=== PATIENT | female | born 1950 | race Caucasian/White ===

== ENCOUNTER → 2023-04-24 06:27 | Day surgery (SDC) | payer OTHER, SELFPAY | LOC: GI 06:27 | PROVIDERS: ATTENDING PHYSICIAN Internal Medicine Gastroenterology | DX: D12.2 Benign neoplasm of ascending colon (principal); D12.5 Benign neoplasm of sigmoid colon; K62.1 Rectal polyp; K55.20 Angiodysplasia of colon without hemorrhage; K57.30 Diverticulosis of large intestine without perforation or abscess without bleeding; K64.8 Other hemorrhoids; D50.9 Iron deficiency anemia, unspecified; K29.70 Gastritis, unspecified, without bleeding; K31.89 Other diseases of stomach and duodenum; K44.9 Diaphragmatic hernia without obstruction or gangrene; K31.819 Angiodysplasia of stomach and duodenum without bleeding; R63.4 Abnormal weight loss | CPT/HCPCS: 45380; 45382; 43239; 88305; 88342 ==

== ENCOUNTER 2023-08-13 23:40 | Inpatient (IN) | payer OTHER, SELFPAY ==
[2023-08-13 20:33] VITALS: BP 148/76; BMI 23.8
[2023-08-13 21:47] LABS: % Basophils 0.1 % (0-2); % Eosinophils 0.3 % (0-6); % Immature Granulocytes 0.6 % (0-0.5); % Lymphocytes 4.9 % (20.5-51.1); % Monocytes 6.6 % (1.7-9.3); % Neutrophils 87.5 % (42.2-75.2); Absolute Eosinophils 0.1 10^3/uL (0-0.7); Absolute Immature Granulocytes 0.1 10^3/uL (0-0.05); Absolute Lymphocytes 0.7 10^3/uL (1.2-3.4); Absolute Monocytes 0.9 10^3/uL (0.1-0.6); Absolute Neutrophils 12.6 10^3/uL (1.4-6.5); Mean Corp Hgb Conc. 29.4 g/dL (33.0-37.0); Mean Corpuscular Volume 102.1 fL (81.0-99.0); Mean Platelet Volume 9.9 fL (7.4-10.4); Nucleated Red Blood Cells % 0 %; Platelet Count 355 10^3/uL (130-400); Red Cell Dist. Width 14.4 % (11.5-14.5); White Blood Cell Count 14.4 10^3/uL (4.8-10.8)
[2023-08-13 21:49] VITALS: BP 148/72
[2023-08-13 21:58] LABS: ALT (SGPT) 12 U/L (0-35); AST (SGOT) 15 U/L (14-36); Albumin 3.3 g/dl (3.5-5.0); Alkaline Phosphatase 82 U/L (38-126); Blood Urea Nitrogen 24 mg/dl (7-17); Calcium 9.6 mg/dl (8.4-10.2); Carbon Dioxide 22 mmol/L (22-30); Chloride 104 mmol/L (98-107); Estimated Creatinine Clearance 30 ml/min; Glucose 114 mg/dl (70-99); Potassium 3.8 mmol/L (3.5-5.1); Sodium 135 mmol/L (135-145); Total Bilirubin 0.3 mg/dl (0.2-1.3); Total Protein 5.8 g/dl (6.3-8.2); eGFR 43.42
[2023-08-13 22:00] VITALS: BP 127/53
[2023-08-13 22:01] LABS: Hematocrit 14.3 % (37.0-47.0); Hemoglobin 4.2 g/dL (12.0-16.0)
[2023-08-13 22:10] LABS: Troponin I < 0.012 ng/ml
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
[2023-08-13 23:00] VITALS: BP 124/49
[2023-08-13] MEDS: ZOSYN 100 IV (23:00)
--- NOTE | 2023-08-13 23:29 | HPS.HSE ---
Family Physician
-
Family Physician: Lauri Garcia
Chief Complaint
-
shortness of breath
History of Present Illness
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 She
did have some palpitations earlier but this is resolved. Denies any chest pain.
She denies any changes in bowel movements but has chronically black stool due to taking iron supplements. Denies abdominal pain or nausea or vomiting. She did have some loose stools this morning.
Patient last had endoscopy and colonoscopy in April of this year. Endoscopy showed nonbleeding angiodysplastic lesion in the duodenum prompting colonoscopy. Colonoscopy showed nonbleeding internal hemorrhoids, diverticulosis, multiple
nonbleeding angiectasia lesions in the colon treated with APC.
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
Medical History
Past Medical History
Past Medical History: Reports Other ( Mycobacterium Avium, COPD, hypertension, hyperlipidemia, depression, chronic kidney disease)
Past Surgical History: Reports None
Social History
Tobacco: Smoker
Alcohol: None
Family History
Family History: Not pertinent
Allergies / Home Medications
Allergies reflects when Allergies were last updated in [email or web address].
Home Medications with original date entered in [email or web address]
Allergy/Medication List:
Allergies
Allergy/AdvReac Type Severity Reaction Status Date / Time
No Known Allergies Allergy Verified 08/13/23 20:33
Home Medications
mometasone-formoterol HFA 200 mcg-5 mcg/actuation aerosol inhaler (Dulera) 2 puff inhalation R BID Lung/breathing issues 07/01/21
tiotropium bromide 2.5 mcg/actuation mist for inhalation (Spiriva Respimat) 2 puff inhalation R DAILY Lung/breathing issues 07/01/21
aspirin 81 mg chewable tablet 81 mg PO DAILY Blood clot prevention/tx 07/08/21
losartan 25 mg tablet 25 mg PO DAILY Blood pressure 07/08/21
sertraline 100 mg tablet 100 mg PO DAILY Mental Health/Anxiety 07/08/21
ferrous sulfate 325 mg (65 mg iron) tablet (Feosol) 325 mg PO DAILY #30 tabs 07/12/21
ethambutol 400 mg tablet 800 mg PO DAILY Infection 10/24/22
wqaxfmqaznrp-cwaglnjz-chcrep tablet 1 tab PO DAILY Supplement 10/24/22
acetaminophen 500 mg tablet 500 mg PO Q6H PRN pain 12/29/22
doxylamine succinate 25 mg tablet (Unisom (doxylamine)) 25 mg PO HS PRN insomnia 12/29/22
simvastatin 20 mg tablet 20 mg PO DAILY High Cholesterol 12/29/22
clofazimine 50 mg capsule 50 mg PO DAILY Infection 01/16/23
Review of Systems
-
History Source: Patient
A 12 point ROS was completed and negative except as noted: Yes
Constitutional: Reports No Symptoms
EENT: Reports No Symptoms
Respiratory: Reports See HPI
Cardiac: Reports No Symptoms
Abdomen/GI: Reports See HPI
: Reports No Symptoms
Musculoskeletal: Reports No Symptoms
Skin: Reports No Symptoms
Neurological: Reports No Symptoms
Endocrine: Reports No Symptoms
Hematologic/Lymphatic: Reports No Symptoms
Psych: Reports No Symptoms
Physical Exam
Vital Signs
Vital Signs
Temp Pulse Resp BP Pulse Ox
98.4 F 101 18 127/53 97
08/13/23 20:33 08/13/23 22:15 08/13/23 22:15 08/13/23 22:00 08/13/23 22:15
Physical Exam
General: Well Developed, Well Nourished and No Apparent Distress
HEENT: NormoCephalic, Moist mucous membranes and Atraumatic
Respiratory: Clear
Cardiac: S1/S2 and Regular Rhythm; No Murmur or Rub
GI: Soft, Non Tender, Non Distended and Normal Bowel Sounds; No Organomegaly
Rectal: Deferred by Provider
Musculoskeletal: No Clubbing, No Cyanosis and No Edema
Skin: No Rash
Neuro: Nonfocal/grossly intact
Laboratory Results
-
08/13/23 21:37
08/13/23 21:37
Laboratory Results
Total Bilirubin 0.3 mg/dl (0.2-1.3) 08/13/23 21:37
AST 15 U/L (14-36) 08/13/23 21:37
ALT 12 U/L (0-35) 08/13/23 21:37
Alkaline Phosphatase 82 U/L (38-126) 08/13/23 21:37
Troponin I < 0.012 ng/ml 08/13/23 21:37
Data Reviewed
-
Lab Data: Labs Reviewed by me
Old Records: Reviewed
Impression/Plan
-
IMPRESSION:
PLAN:
# Dyspnea multifactorial secondary to severe anemia and community-acquired pneumonia
-See individually below
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
-Stool black and profoundly heme positive
-Hemoglobin of 4.2 from 7.6
-3 units of blood
-Check iron studies, B12, folate
-N.p.o.
-Hold aspirin
-Protonix 40 twice daily
-Patient had angiodysplasia lesions in duodenum/colon on recent EGD/colonoscopy
-GI consulted
# Sepsis (leukocytosis, tachycardia) secondary community-acquired pneumonia
-Check COVID, influenza
-Check sputum culture
-Blood cultures
-IV fluids
-Zosyn
History of necrotizing cavitary lesion with Mycobacterium Avium
-Completed treatment
COPD
-Continue inhalers
Anxiety/depression
-Continue sertraline
Essential hypertension
-Continue prophylactic aspirin
-Hold losartan
Hyperlipidemia
-Continue statin
Chronic kidney disease
-Renal function baseline
Active smoker
-10 cigarettes a day
DNR/DNI
DVT prophylaxis�SCDs
N.p.o.
[2023-08-13 23:57] VITALS: BP 124/49
[2023-08-14] VITALS (20 sets, daily range): BP systolic 109–146; BP diastolic 50–80; BMI 22.8
[2023-08-14] MEDS: NSS (PRESERVATIVE FREE) 10 ML IV ×3 (00:08→19:37)
[2023-08-14] MEDS: PROTONIX IV 40 MG IV ×3 (00:08→19:37)
[2023-08-14 00:42] LABS: Total Iron Binding Capacity 389 ug/dl (265-497)
[2023-08-14 00:50] LABS: COVID-19 Antigen Negative (Negative)
[2023-08-14 00:53] LABS: Iron < 20 ug/dl (37-170)
--- NOTE | 2023-08-14 01:20 | PTCARENOTE ---
Patient admitted into room 3342 from ER. Oriented to room and use of call ramirez. First unit of blood infusing by gravity. Tele applied showing NSR/ST. Patient reports 5/10 MADRID; Tylenol requested. 2L NC in place Sp02 98-100%, pt SOB at rest and with
exertion. Congested non-prod cough present. CHG wiped down. Call ramirez and tray table within reach.
[2023-08-14] MEDS: TYLENOL 650 MG PO ×2 (01:34→22:51)
--- NOTE | 2023-08-14 03:11 | PTCARENOTE ---
Second unit of blood started. VSS. Afebrile. IV patent.
At 15 min check pt offers no complaints. VSS. PRBC infusing per pump.
[2023-08-14 03:41] LABS: Folate > 20.0 ng/ml (2.76-20); Vitamin B12 984 pg/ml (239-931)
[2023-08-14] MEDS: ZOSYN 50 IV ×4 (04:53→22:22)
--- NOTE | 2023-08-14 06:37 | PTCARENOTE ---
Third unit of blood started this morning around 0550.
At 15min check pt offers no complaints. VSS. Denies any pain.
Call ramirez within reach.
--- NOTE | 2023-08-14 07:30 | CON.GI ---
Addendum entered and electronically signed by Kassy Giordano Do, MD 08/14/23 14:47:
I saw and examined the patient.
The [employer] [employer] [employer]'s note was reviewed and I agree with the note.
Comment: Roya is a 72yo W known to myself with ho SAMIR, COPD and CKD who presents with severe symptomatic anemia with H/bg 4.2 MCV 102 with dark heme + stools. She had EGD/colon for SANDRA done with myself in 04/2023 with polyps, cecal AVMS s/p
argon plasma coagulation. She also had gastritis, 2cm hiatal hernia and duodenal AVM with villous blunting. Labs severe iron deficiency. Normal B12 and folate. CXR PNA that is new and cavitary lesion in RUL zone
Impression
- PNA and SOB
- Severe iron def anemia and melena
Suspect AVM that was seen on EGD/colon 04/2023 in cecum and duodenum
- SAMIR
- COPD
- CKD
- Depression
- HTN
- HL
Recommendations
- PPI IV BID
- IV iron
- Monitor stool output
- Discussed EGD/enterosocpy and she is agreeable once respiratory status improves. She declines any repeat colonoscopy. Given that despite cautery that AVMs can recur she is agreeable to seeing outpatient ballet dancer for perioid IV
iron/transfusions PRN basis
- Low residue diet
Will follow with you
Original Note:
Consultation
-
Date/Time Consultation Requested: 08/14/23 005
Date/Time Consultation Performed: 08/14/23 0930
Requesting Provider: Capo Tapia MD
Performing Provider: DARLENE Alejandre, Kassy Quintanilla MD
Reason for Consultation: anemia
Medical History
Chief Complaint / HPI
Chief Complaint: shortness of breath
History of Present Illness:
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 On admission noted with hbg 4.2 with MCV 102. chemistry stable except creat 1.3
and glucose 114. Iron studies consistent with iron deficiency with normal B12 and folate. She is also noted with concern for PNA and sepsis on admission. 05/16 EGD erythema, HH, stomach, non bleeding angiodysplastic duodenum, villous blunting bx
neg ER stool heme +. recent EGD 05/16 with HH, nodule stomach, non bleeding angioectasia, focal villous blunting on bx. recommended celiac not completed. Colonoscopy with TA and HP polyps, diverticulosis, multiple non bleeding colonic
angiodysplastic lesion with APC.
At this time patient admits to chronic black stools with chronic iron use. She has occasional loose stool. She also has chronic dyspnea which is slightly worse than baseline. She admits to GERD with chronic tums use. No dysphagia, nausea,
vomiting, abdomen, or red blood in stools. On daily ASA no other NSAID use or anticoagulation.
Past Medical History
Past Medical History: COPD, HTN, Hypercholesterolemia, Renal Failure (CKD), Psychiatric (depression) and Other (mycobacterium Avium, colonic and duodenal AVM's, colon polyps)
Social History
Tobacco: Smoker (10 cig per day)
Alcohol: None
Drug: None
Living: With Family
Employment: Retired
Family History
Family History: Other (no family hx colon cA or polyps)
Allergies / Home Medications
Allergy/AdvReac Type Severity Reaction Status Date / Time
No Known Allergies Allergy Verified 08/13/23 20:33
�Medication �Instructions �Recorded
mometasone-formoterol HFA 200 2 puff inhalation R BID 07/01/21
mcg-5 mcg/actuation aerosol Lung/breathing issues
inhaler (Dulera)
tiotropium bromide 2.5 2 puff inhalation R DAILY 07/01/21
mcg/actuation mist for inhalation Lung/breathing issues
(Spiriva Respimat)
aspirin 81 mg chewable tablet 81 mg PO DAILY Blood clot 07/08/21
prevention/tx
losartan 25 mg tablet 25 mg PO DAILY Blood pressure 07/08/21
sertraline 100 mg tablet 100 mg PO DAILY Mental 07/08/21
Health/Anxiety
ferrous sulfate 325 mg (65 mg 325 mg PO DAILY #30 tabs 07/12/21
iron) tablet (Feosol)
ethambutol 400 mg tablet 800 mg PO DAILY Infection 10/24/22
rbozaqeakucz-uqwynwpo-wofkkb tablet 1 tab PO DAILY Supplement 10/24/22
acetaminophen 500 mg tablet 500 mg PO Q6H PRN pain 12/29/22
doxylamine succinate 25 mg tablet 25 mg PO HS PRN insomnia 12/29/22
(Unisom (doxylamine))
simvastatin 20 mg tablet 20 mg PO DAILY High Cholesterol 12/29/22
clofazimine 50 mg capsule 50 mg PO DAILY Infection 01/16/23
Review of Systems
-
History Source: Patient
Constitutional: Reports Fatigue
EENT: Reports No Symptoms
Respiratory: Reports Trouble Breathing (chronic with chronic O2)
Cardiac: Reports No Symptoms
Abdomen/GI: Reports Diarrhea (occasional ) and Black Stools (chronic with iron use )
: Reports No Symptoms
Musculoskeletal: Reports No Symptoms
Skin: Reports No Symptoms
Neurological: Reports Weakness
Endocrine: Reports No Symptoms
Hematologic/Lymphatic: Reports Bleeding
Vital Signs
Temp Pulse Resp BP Pulse Ox
98.7 F 85 23 125/54 99
08/14/23 06:03 08/14/23 06:30 08/14/23 06:30 08/14/23 06:03 08/14/23 06:30
Physical Exam
Exam
General: Other (some chronic shortness of breath in exam)
HEENT: Normocephalic and Anicteric
Respiratory: Other (dyspnea at rest )
Cardiac: Regular Rhythm
GI: Soft, Non Tender and Non Distended
Rectal: Other (heme + per ER)
Musculoskeletal: No Clubbing and No Cyanosis
Skin: Warm and Dry
Neuro: Awake, Alert and AO x 3
Psych: Calm
Results
WBC 14.4 10^3/uL (4.8-10.8) H 08/13/23 21:37
Hgb 4.2 g/dL (12.0-16.0) L* 08/13/23 21:37
Hct 14.3 % (37.0-47.0) L* 08/13/23 21:37
MCV 102.1 fL (81.0-99.0) H 08/13/23 21:37
Plt Count 355 10^3/uL (130-400) 08/13/23 21:37
Absolute Neuts (auto) 12.6 10^3/uL (1.4-6.5) H 08/13/23 21:37
Sodium 135 mmol/L (135-145) 08/13/23 21:37
Potassium 3.8 mmol/L (3.5-5.1) 08/13/23 21:37
Chloride 104 mmol/L (98-107) 08/13/23 21:37
Carbon Dioxide 22 mmol/L (22-30) 08/13/23 21:37
BUN 24 mg/dl (7-17) H 08/13/23 21:37
Creatinine 1.3 mg/dL (0.6-1.0) H 08/13/23 21:37
Calcium 9.6 mg/dl (8.4-10.2) 08/13/23 21:37
Total Bilirubin 0.3 mg/dl (0.2-1.3) 08/13/23 21:37
AST 15 U/L (14-36) 08/13/23 21:37
ALT 12 U/L (0-35) 08/13/23 21:37
Alkaline Phosphatase 82 U/L (38-126) 08/13/23 21:37
Diagnostic Image Results:
02/2023 CT Abd/pelvis Angio W/wo Iv
1. Post endovascular repair of infrarenal abdominal aortic aneurysm with placement of fenestrated aortobiiliac stent graft. Excluded aneurysm sac is stable in size measuring up to 5.1 cm. There appears be a tiny likely type III endoleak arising
from the posterior margin of the mid graft at the site of overlap of the main body of the graft and iliac limbs.
2. New ill-defined branching opacity seen within the right lower lobe with focal impaction of the leading bronchus suspicious for a bronchiolitis or possibly bronchopneumonia. No discrete nodule seen within this region on the prior CT. Attention
on follow-up imaging recommended.
3. 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
4. 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
5. Couple of nonobstructing nephroliths within the RIGHT kidney. 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
6. Additional findings above.
Prior GI Procedures:
04/24/23 EGD Kassy Quintanilla MD - Normal esophagus.
- Erythematous mucosa in the antrum. Biopsied.
- 2 cm hiatal hernia.
- Normal examined duodenum. Biopsied.
- A single papule (nodule) found in the stomach.
Biopsied.
- A single non-bleeding angiodysplastic lesion in the
duodenum.
focal villous blunting, H pylori, dysplasia
bx Hpylori, focal villous blunting nospecific
04/24/23 colon Kassy Quintanilla MD - Non-bleeding internal hemorrhoids.
- Diverticulosis in the sigmoid colon and in the
descending colon.
- The examination was otherwise normal.
- Three 2 to 3 mm polyps in the rectum, removed with a
jumbo cold forceps. Resected and retrieved.
- Multiple non-bleeding colonic angiodysplastic
lesions. Treated with argon plasma coagulation (APC).
- One 5 mm polyp in the ascending colon, removed with
a jumbo cold forceps. Resected and retrieved.
- One 3 mm polyp in the sigmoid colon, removed with a
jumbo cold forceps. Resected and retrieved.
bx tubular adenoma, hyperplastic polyp
Assessment / Plan
-
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 On admission noted with hbg 4.2 with MCV 102. chemistry stable except creat 1.3
and glucose 114. Iron studies consistent with iron deficiency with normal B12 and folate.She is also noted with concern for PNA and sepsis on admission. Prior GI testing 05/16 EGD erythema, HH, stomach, non bleeding angiodysplastic duodenum,
villous blunting bx neg ER stool heme +. recent EGD 05/16 with HH, nodule stomach, non bleeding angioectasia, focal villous blunting on bx. recommended celiac not completed. Colonoscopy with TA and HP polyps, multiple non bleeding colonic
angiodysplastic lesion with APC, diverticulosis
-macrocytic anemia with iron deficiency
-sepsis with concern for concurrent PNA with tachycardia/leukocytosis on admission
-hx colonic and duodenal AVM's
-hx SB villous blunting
-GERD PRN tums
other medical problems:
-necrotizing cavitary lesion with Mycobacterium Avium
-COPD
-active smoker
-anxiety/depression
-HTN
-hyperlipidemia
-CKD
PLAN:
etiology of anemia with iron deficiency related to slow bleeding with hx duodenal/colonic AVM's noted in April, underlying celiac with villous blunting vs other
cont rx for PNA with sepsis on admission as currently with continued dyspnea at rest with chronic o2 with underlying lung disease
consider EGD +/- colon when optimized from resp standpoint vs OP heme eval for iron infusion/monitoring of hbg
ok for low residue diet for now
no signs of aggressive GI bleeding as no stools overnight
s/p 3 units PRBC's ordered repeat hbg pending
add celiac panel as note completed OP with villous blunting
trend hbg
cont PPI BID
add 2 dose IV iron
will follow
-
-
Thank you for consultation and allowing me to participate in the patient's care. Please call the aviation manager GI physician during the after hours with any questions or concerns.
[2023-08-14] MEDS: NSS IV (07:42)
[2023-08-14] MEDS: NSS 1000 IV (07:55)
[2023-08-14 10:28] LABS: % Basophils 0.3 % (0-2); % Eosinophils 0.3 % (0-6); % Immature Granulocytes 0.8 % (0-0.5); % Lymphocytes 5.1 % (20.5-51.1); % Monocytes 6.6 % (1.7-9.3); % Neutrophils 86.9 % (42.2-75.2); Absolute Immature Granulocytes 0.1 10^3/uL (0-0.05); Absolute Lymphocytes 0.6 10^3/uL (1.2-3.4); Absolute Monocytes 0.8 10^3/uL (0.1-0.6); Absolute Neutrophils 10.8 10^3/uL (1.4-6.5); Hematocrit 22.4 % (37.0-47.0); Mean Corp Hgb Conc. 31.7 g/dL (33.0-37.0); Mean Corpuscular Hgb 29.2 pg (27.0-31.0); Mean Corpuscular Volume 92.2 fL (81.0-99.0); Nucleated Red Blood Cells % 0.2 %; Platelet Count 270 10^3/uL (130-400); Red Blood Cell Count 2.43 10^6/uL (4.20-5.40); Red Cell Dist. Width 19.6 % (11.5-14.5); White Blood Cell Count 12.4 10^3/uL (4.8-10.8)
[2023-08-14 10:29] LABS: ALT (SGPT) 13 U/L (0-35); AST (SGOT) 16 U/L (14-36); Albumin 2.9 g/dl (3.5-5.0); Alkaline Phosphatase 74 U/L (38-126); Blood Urea Nitrogen 20 mg/dl (7-17); Calcium 8.7 mg/dl (8.4-10.2); Carbon Dioxide 23 mmol/L (22-30); Chloride 108 mmol/L (98-107); Estimated Creatinine Clearance 30 ml/min; Glucose 107 mg/dl (70-99); Sodium 138 mmol/L (135-145); Total Bilirubin 1.5 mg/dl (0.2-1.3); Total Protein 5.2 g/dl (6.3-8.2); eGFR 43.42
[2023-08-14 10:33] LABS: Hemoglobin 7.1 g/dL (12.0-16.0); NT-proBNP 2910 pg/ml
[2023-08-14 10:37] LABS: Troponin I < 0.012 ng/ml
[2023-08-14 10:48] LABS: Potassium 3.8 mmol/L (3.5-5.1)
[2023-08-14 10:57] LABS: TSH Reflex To Free T4 1.87 uIU/ml (0.47-4.68)
[2023-08-14] MEDS: DUONEB 3 ML INH (12:03)
--- NOTE | 2023-08-14 12:18 | W.PN.HOSP.TC ---
Today's Communication/Plan
-
trend cbc
iv ppi bid
iv iron
empiric abx for pneumonia
speech eval
Assessment / Plan
Assessment / Plan
General: Laying in bed, mildly tachypneic
HEENT: Normocephalic and Anicteric
Respiratory: Other (dyspnea at rest )
Cardiac: Regular Rhythm
GI: Soft, Non Tender and Non Distended
Rectal: Other (heme + per ER)
Musculoskeletal: No Clubbing and No Cyanosis
Skin: Warm and Dry
Neuro: Awake, Alert and AO x 3
Psych: Calm
# Dyspnea multifactorial secondary to severe symptomatic anemia and community-acquired pneumonia
-See individually below
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
-Stool black and profoundly heme positive
-Hemoglobin of 4.2 from 7.1
-3 units of blood
-LRD
-celiac panel added by GI
-Continue PPI BID
-IV Iron
-Trend CBC
-Hold aspirin
# Sepsis (leukocytosis, tachycardia) secondary community-acquired pneumonia
-Check COVID, influenza
-Check sputum culture
-Blood cultures
-IV fluids
-Zosyn
-speech eval
History of necrotizing cavitary lesion with Mycobacterium Avium
-Completed treatment
COPD (severe with pre-BD FEV1: 0.96, 47% predicted, DLco: 28% via PFt from 05/2021)
#Chronic hypoxemic respiratory failure on home O2 (2L/min at rest, 4L/min with activity)
-Continue inhalers
-at baseline
Anxiety/depression
-Continue sertraline
Essential hypertension
-Continue prophylactic aspirin
-Hold losartan
# Hyperbilirubinemia
� Add on direct bili
Hyperlipidemia
-Continue statin
Chronic kidney disease
-Renal function baseline
Active smoker
-10 cigarettes a day
DNR/DNI
DVT prophylaxis�SCDs
Anticipated Discharge: 24 - 48 hours
Subjective/Interval History
-
Date of Service: August 14, 2023
feels better although not still at baseline
Objective Data
-
Labs:
Laboratory Results
08/14/23
09:50
WBC 12.4 H
Hgb 7.1 L D
Hct 22.4 L
Plt Count 270 D
Sodium 138
Potassium 3.8
Chloride 108 H
Carbon Dioxide 23
BUN 20 H
Creatinine 1.3 H
Glucose 107 H
Calcium 8.7
Total Bilirubin 1.5 H D
AST 16
ALT 13
Alkaline Phosphatase 74
Vital Signs:
Vital Signs
Temp Pulse Resp BP Pulse Ox
98.5 F 88 20 131/58 98
08/14/23 07:55 08/14/23 12:09 08/14/23 12:09 08/14/23 10:00 08/14/23 12:09
I&O
08/13/23 08/14/23 08/15/23
06:59 06:59 06:59
Intake Total 800 / 800 250 / 250
Output Total 200 / 200
Balance 600 / 600 250 / 250
Review of Systems
-
History Source: Patient
All other systems: Not reviewed unless documented
Data Reviewed
-
Labs: Labs Reviewed by me
--- NOTE | 2023-08-14 12:45 | PTCARENOTE ---
Pt appears dyspneic at rest. She is tachypneic, RR 25-26. Lungs with coarse crackles, inspiratory and expiratory wheezing. Pt does state she feels SOB. She has a moist, harsh, non-productive cough. Denies being able to bring up sputum. RT to bedside
to give patient PRN breathing treatment. Pt appears much more comfortable following treatment and pt voiced she feels better.
[2023-08-14] MEDS: FERRLECIT 110 MG IV (13:42)
[2023-08-14 13:48] LABS: Direct Bilirubin 0.4 mg/dl (0.0-0.4)
--- NOTE | 2023-08-14 14:39 | PTOTSP ---
Dysphagia Evaluation
Patient was able to tolerate regular, thin liquids at time of evaluation without any overt signs/symptoms of aspiration. Increased respiratory rate noted after consecutive drinking and while chewing solid.
Patient is at an elevated risk for dysphagia/aspiration given acute (i.e., pneumonia with tachypnea and dyspnea) and chronic risk factors (i.e, COPD, GERD, hiatal hernia). Patient denied any history of prior dysphagia/aspiration and last known
pneumonia was 1 year ago.
Recommend:
1. Regular, Thin Liquids
2. Medications - as best tolerated
3. Strategies: upright to 90 degrees, small single sips/bites, slow rate, breaks for breathing, avoid eating if very SOB/coughing, reflux precautions
4. Consider video swallow study if concerned for aspiration based on risk factors above.
--- NOTE | 2023-08-14 14:46 | PTCARENOTE ---
Patient's son, Jonas was updated per nursing ability over the phone this morning and again at bedside when he came in for visit.
--- NOTE | 2023-08-14 14:57 | CM ---
Met with patient.She is admitted from home with anemia and pna. She lives alone. Her children live nearby and drive her to appointments
Her home is 2 level with 2 steps to enter. THere is half bath on entry level marketing representative. UP full flight to bedroom and full bathroom. She has shower seat and shower rails. S
She is currently on oxygen. CM to watch for need of oxygen at discharge.
NO history of VNA or SNf rehab.
PCP Dr. Martell
Pharmacy: [facility] [address] [facility].
PLAN: home no needs.
[2023-08-14] MEDS: TESSALON PERLES 200 MG PO (18:28)
[2023-08-14] MEDS: MELATONIN 3 MG PO (22:51)
[2023-08-15] VITALS (13 sets, daily range): BP systolic 109–134; BP diastolic 48–89; PULSE 84–120; O2SAT 100
[2023-08-15] MEDS: ZOSYN 50 IV ×4 (04:22→21:43)
[2023-08-15] MEDS: DUONEB 3 ML INH ×4 (04:37→20:03)
[2023-08-15 04:49] LABS: Hematocrit 21.8 % (37.0-47.0); Hemoglobin 7.1 g/dL (12.0-16.0); Mean Corp Hgb Conc. 32.6 g/dL (33.0-37.0); Mean Corpuscular Hgb 29.6 pg (27.0-31.0); Mean Corpuscular Volume 90.8 fL (81.0-99.0); Mean Platelet Volume 10.2 fL (7.4-10.4); Platelet Count 271 10^3/uL (130-400); Red Cell Dist. Width 20.1 % (11.5-14.5); White Blood Cell Count 10.4 10^3/uL (4.8-10.8)
[2023-08-15 05:17] LABS: Troponin I < 0.012 ng/ml
[2023-08-15 05:25] LABS: ALT (SGPT) 11 U/L (0-35); AST (SGOT) 18 U/L (14-36); Albumin 2.8 g/dl (3.5-5.0); Alkaline Phosphatase 77 U/L (38-126); Blood Urea Nitrogen 16 mg/dl (7-17); Calcium 8.9 mg/dl (8.4-10.2); Carbon Dioxide 21 mmol/L (22-30); Chloride 106 mmol/L (98-107); Estimated Creatinine Clearance 33 ml/min; Glucose 104 mg/dl (70-99); Magnesium 2.1 mg/dl (1.6-2.3); Potassium 3.4 mmol/L (3.5-5.1); Sodium 136 mmol/L (135-145); Total Bilirubin 0.7 mg/dl (0.2-1.3); Total Protein 5.2 g/dl (6.3-8.2)
--- NOTE | 2023-08-15 06:39 | PTCARENOTE ---
No acute events overnight. Afebrile. PRN tylenol given for headache.
[2023-08-15] MEDS: NSS (PRESERVATIVE FREE) 10 ML IV ×2 (09:04→20:02)
[2023-08-15] MEDS: PROTONIX IV 40 MG IV ×2 (09:04→20:02)
[2023-08-15] MEDS: KCL ELIXIR 40 MEQ PO (09:19)
[2023-08-15] MEDS: DELTASONE 40 MG PO (11:50)
--- NOTE | 2023-08-15 13:23 | W.PN.GI.CBS2 ---
Today's Communication / Plan
-
No BM
C/w IV iron and PPI IV BID
Anticipate EGD/enteroscopy on Thursday pending continued respiratory improvement
Assessment / Plan
-
Roya is a 72yo W known to myself with ho SAMIR, COPD and CKD who presents with severe symptomatic anemia with H/bg 4.2 MCV 102 with dark heme + stools. She had EGD/colon for SANDRA done with myself in 04/2023 with polyps, cecal AVMS s/p argon plasma
coagulation. She also had gastritis, 2cm hiatal hernia and duodenal AVM with villous blunting. Labs severe iron deficiency. Normal B12 and folate. CXR PNA that is new and cavitary lesion in RUL zone
Impression
- PNA and SOB
- Severe iron def anemia and melena
Suspect AVM that was seen on EGD/colon 04/2023 in cecum and duodenum
s/p 3 u PRBC on this admission
- SAMIR
- COPD
- CKD
- Depression
- HTN
- HL
Recommendations
- PPI IV BID
- IV iron
- Monitor stool output
- Serial H/H
- Discussed EGD/enterosocpy and she is agreeable for Thursday pending improvement in respiratory status. She declines any repeat colonoscopy. Given that despite cautery that AVMs can recur she is agreeable to seeing outpatient block captain for
perioid IV iron/transfusions PRN basis
- Low residue diet
Will follow with you
Subjective
Subjective
Date of Service: August 15, 2023
She ate 75% of lunch without issues. No BM since admisson though at baseline dark due to being on oral iron. Denies abd pain, nausea/vomiting
Objective
Data Reviewed
Laboratory Data:
Laboratory Results
08/15/23 04:20
08/15/23 04:20
Laboratory Results
Magnesium 2.1 mg/dl (1.6-2.3) 08/15/23 04:20
Total Bilirubin 0.7 mg/dl (0.2-1.3) 08/15/23 04:20
AST 18 U/L (14-36) 08/15/23 04:20
ALT 11 U/L (0-35) 08/15/23 04:20
Alkaline Phosphatase 77 U/L (38-126) 08/15/23 04:20
Vital Signs and I&O:
Vital Signs
Temp Pulse Resp BP Pulse Ox
99.0 F 89 21 122/60 97
08/15/23 07:57 08/15/23 12:00 08/15/23 12:00 08/15/23 10:00 08/15/23 12:00
I&O
08/14/23 08/15/23 08/16/23
06:59 06:59 06:59
Intake Total 800 / 800 1320 / 1320
Output Total 200 / 200 200 / 200
Balance 600 / 600 1120 / 1120
Physical Exam
Physical Exam
GEN: No acute distress, conversant, pleasant
HEENT: anicteric, extraocular movements intact, clear oropharynx without exudates
RESP: clear to auscultation without crackles
GI: soft, non-distended, not tender to palpation, normal active bowel sounds, no hepatosplenomegaly
EXT: warm, well perfused, trace edema bilaterally
NEURO: AAOx3, non-focal
[2023-08-15] MEDS: FERRLECIT 110 MG IV (13:46)
--- NOTE | 2023-08-15 14:09 | W.PN.HOSP.TC ---
Today's Communication/Plan
-
start prednisone
incentive missy
cont abx
f/u cultures
tentative EGD/C-Scope Thursday
Assessment / Plan
Assessment / Plan
General: Laying in bed, mildly tachypneic
HEENT: Normocephalic and Anicteric
Respiratory: Other (dyspnea at rest ) Expiratory wheezing lower Bases B/l
Cardiac: Regular Rhythm
GI: Soft, Non Tender and Non Distended
Rectal: Other (heme + per ER)
Musculoskeletal: No Clubbing and No Cyanosis
Skin: Warm and Dry
Neuro: Awake, Alert and AO x 3
Psych: Calm
# Dyspnea multifactorial secondary to severe symptomatic anemia and community-acquired pneumonia + COPD exacerbation
-See individually below
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
-Stool black and profoundly heme positive
-Hemoglobin of 4.2 from 7.1
-3 units of blood
-LRD
-celiac panel added by GI
-Continue PPI BID
-IV Iron
-Trend CBC
-Hold aspirin
-Plan EGD/Colonoscopy Thursday
# Sepsis (leukocytosis, tachycardia) secondary community-acquired pneumonia
-COVID, influenza - negative
-Check sputum culture if expectorating
-Blood cultures f/u
-Incentive Missy
-Zosyn
-speech eval
History of necrotizing cavitary lesion with Mycobacterium Avium
-Completed treatment
Acute COPD Exacerbation (severe with pre-BD FEV1: 0.96, 47% predicted, DLco: 28% via PFt from 05/2021)
#Chronic hypoxemic respiratory failure on home O2 (2L/min at rest, 4L/min with activity)
-Continue inhalers
-Start Prednisone
#Hypokalemia
-monitor and replete
Anxiety/depression
-Continue sertraline
Essential hypertension
-Continue prophylactic aspirin
-Hold losartan
# Hyperbilirubinemia
-resolved
Hyperlipidemia
-Continue statin
Chronic kidney disease
-Renal function baseline
Active smoker
-10 cigarettes a day
DNR/DNI
DVT prophylaxis�SCDs
Anticipated Discharge: Within 24 hours
Subjective/Interval History
-
Date of Service: August 15, 2023
resp status improving
Objective Data
-
Labs:
Laboratory Results
08/15/23
04:20
WBC 10.4
Hgb 7.1 L
Hct 21.8 L
Plt Count 271
Sodium 136
Potassium 3.4 L
Chloride 106
Carbon Dioxide 21 L
BUN 16
Creatinine 1.2 H
Glucose 104 H
Calcium 8.9
Total Bilirubin 0.7
AST 18
ALT 11
Alkaline Phosphatase 77
Vital Signs:
Vital Signs
Temp Pulse Resp BP Pulse Ox
97.9 F 98 21 112/50 99
08/15/23 11:45 08/15/23 14:00 08/15/23 14:00 08/15/23 14:00 08/15/23 14:00
I&O
08/14/23 08/15/23 08/16/23
06:59 06:59 06:59
Intake Total 800 / 800 1320 / 1320
Output Total 200 / 200 200 / 200
Balance 600 / 600 1120 / 1120
Review of Systems
-
History Source: Patient
All other systems: Not reviewed unless documented
Data Reviewed
-
Diagnostic Radiology: Image personally visualized and interpreted and Report Reviewed by me
Labs: Labs Reviewed by me
--- NOTE | 2023-08-15 14:11 | PTCARENOTE ---
Assumed care of Pt at shift change; 2L O2 with SpO2 ~ 93-96%; OOB to chair with PT; Trending Hgb, and giving IV iron; Pt continuing with low res diet, poor marlene. SR on monitor; Denies pain; Current smoker - refused nicotine patch. Will continue
to monitor and assess.
[2023-08-15] MEDS: MELATONIN 3 MG PO (21:43)
[2023-08-16] VITALS (20 sets, daily range): BP systolic 124–158; BP diastolic 58–99; PULSE 101; O2SAT 99
[2023-08-16] MEDS: ZOSYN 50 IV ×4 (03:44→22:11)
[2023-08-16 04:07] LABS: % Basophils 0.1 % (0-2); % Eosinophils 0.2 % (0-6); % Immature Granulocytes 0.5 % (0-0.5); % Lymphocytes 7.8 % (20.5-51.1); % Monocytes 7.8 % (1.7-9.3); % Neutrophils 83.6 % (42.2-75.2); Absolute Lymphocytes 0.7 10^3/uL (1.2-3.4); Absolute Monocytes 0.7 10^3/uL (0.1-0.6); Absolute Neutrophils 7.1 10^3/uL (1.4-6.5); Mean Corpuscular Hgb 28.9 pg (27.0-31.0); Mean Corpuscular Volume 90.4 fL (81.0-99.0); Mean Platelet Volume 10.4 fL (7.4-10.4); Nucleated Red Blood Cells % 0.4 %; Platelet Count 251 10^3/uL (130-400); Red Blood Cell Count 2.28 10^6/uL (4.20-5.40); Red Cell Dist. Width 19.1 % (11.5-14.5); White Blood Cell Count 8.5 10^3/uL (4.8-10.8)
[2023-08-16 04:09] LABS: Hematocrit 20.6 % (37.0-47.0); Hemoglobin 6.6 g/dL (12.0-16.0)
--- NOTE | 2023-08-16 04:34 | PTCARENOTE ---
AM hgb 6.6, hct 20.6. No signs of bleeding. call center operator provider made aware.
--- NOTE | 2023-08-16 04:37 | W.PN.UPDATE ---
Update Note
Progress Note Update
Pt's H&H 7.1/21.8>>6.6/20.6. Rx 1U PRBC. Repeat CBC post transfusion.
[2023-08-16 04:38] LABS: ALT (SGPT) 12 U/L (0-35); AST (SGOT) 19 U/L (14-36); Albumin 2.7 g/dl (3.5-5.0); Alkaline Phosphatase 65 U/L (38-126); Blood Urea Nitrogen 15 mg/dl (7-17); Calcium 8.9 mg/dl (8.4-10.2); Carbon Dioxide 22 mmol/L (22-30); Chloride 106 mmol/L (98-107); Estimated Creatinine Clearance 40 ml/min; Glucose 116 mg/dl (70-99); Sodium 134 mmol/L (135-145); Total Bilirubin 0.3 mg/dl (0.2-1.3); eGFR 59.49
--- NOTE | 2023-08-16 05:44 | PTCARENOTE ---
1 unit PRBCs ordered and currently infusing. CBC to be drawn 4 hours post transfusion.
[2023-08-16] MEDS: NSS (PRESERVATIVE FREE) 10 ML IV ×2 (07:40→20:35)
[2023-08-16] MEDS: DELTASONE 40 MG PO (07:40)
[2023-08-16] MEDS: TESSALON PERLES 200 MG PO ×2 (07:40→23:13)
[2023-08-16] MEDS: PROTONIX IV 40 MG IV ×2 (07:40→20:35)
[2023-08-16] MEDS: DUONEB 3 ML INH ×4 (08:11→19:43)
[2023-08-16] MEDS: TYLENOL 650 MG PO ×2 (11:16→18:27)
--- NOTE | 2023-08-16 11:44 | W.PN.GI.CBS2 ---
Today's Communication / Plan
-
Transfuse 1u PRBC today per hospitalist
May need another unit of blood tomorrow pending post transfusion CBC
Anticipate enteroscopy and colonoscopy (if pt is willing to drink prep) on Thursday
Assessment / Plan
-
Roya is a 72yo W known to myself with ho SAMIR, COPD and CKD who presents with severe symptomatic anemia with H/bg 4.2 MCV 102 with dark heme + stools. She had EGD/colon for SANDRA done with myself in 04/2023 with polyps, cecal AVMS s/p argon plasma
coagulation. She also had gastritis, 2cm hiatal hernia and duodenal AVM with villous blunting. Labs severe iron deficiency. Normal B12 and folate. CXR PNA that is new and cavitary lesion in RUL zone
Impression
- PNA and SOB
- Severe iron def anemia and melena
Suspect AVM that was seen on EGD/colon 04/2023 in cecum and duodenum
s/p 3 u PRBC on this admission
- SAMIR
- COPD
- CKD
- Depression
- HTN
- HL
Recommendations
- PPI IV BID
- IV iron
- Monitor stool output, none thus far
- Serial H/H, downtrending today and 1u PRBC ordered
- Discussed EGD/enterosocpy and she is agreeable for Thursday. Given further drop in Hbg today will need to strongly encourge her to have colonoscopy as well. Given that despite cautery that AVMs can recur she is agreeable to seeing outpatient
poultry sexer for period IV iron/transfusions PRN basis
- Low residue diet
Will follow with you
Subjective
Subjective
Date of Service: August 16, 2023
Tolerating a low residue diet. Denies abd pain, nausea/vomiting. She has not had any BM since admission
Objective
Data Reviewed
Laboratory Data:
Laboratory Results
08/16/23 03:55
Laboratory Results
Magnesium 2.1 mg/dl (1.6-2.3) 08/15/23 04:20
Total Bilirubin 0.3 mg/dl (0.2-1.3) 08/16/23 03:55
AST 19 U/L (14-36) 08/16/23 03:55
ALT 12 U/L (0-35) 08/16/23 03:55
Alkaline Phosphatase 65 U/L (38-126) 08/16/23 03:55
Vital Signs and I&O:
Vital Signs
Temp Pulse Resp BP Pulse Ox
98.4 F 85 20 124/99 99
08/16/23 11:42 08/16/23 11:38 08/16/23 11:38 08/16/23 10:00 08/16/23 11:38
I&O
08/15/23 08/16/23 08/17/23
06:59 06:59 06:59
Intake Total 1320 / 1320 340 / 340 250 / 250
Output Total 200 / 200
Balance 1120 / 1120 340 / 340 250 / 250
Physical Exam
Physical Exam
GEN: No acute distress, conversant, pleasant
HEENT: anicteric, extraocular movements intact, clear oropharynx without exudates ++AVM on L cheek
GI: soft, non-distended, not tender to palpation, normal active bowel sounds, no hepatosplenomegaly
EXT: warm, well perfused, no edema bilaterally
NEURO: AAOx3, non-focal
[2023-08-16 13:11] LABS: Mean Corp Hgb Conc. 33.2 g/dL (33.0-37.0); Mean Corpuscular Hgb 29.4 pg (27.0-31.0); Mean Corpuscular Volume 88.7 fL (81.0-99.0); Mean Platelet Volume 10.4 fL (7.4-10.4); Platelet Count 261 10^3/uL (130-400); Red Blood Cell Count 2.82 10^6/uL (4.20-5.40); Red Cell Dist. Width 19.2 % (11.5-14.5)
[2023-08-16 13:17] LABS: Hemoglobin 8.3 g/dL (12.0-16.0)
--- NOTE | 2023-08-16 14:17 | W.PN.HOSP.TC ---
Today's Communication/Plan
-
monitor cbc post transfusion
ppi iv
egd/scope tentatively thursday
steroids, nebs, abx
Assessment / Plan
Assessment / Plan
General: Laying in bed, mildly tachypneic
HEENT: Normocephalic and Anicteric
Respiratory: Other (dyspnea at rest ) Expiratory wheezing lower Bases B/l
Cardiac: Regular Rhythm
GI: Soft, Non Tender and Non Distended
Rectal: Other (heme + per ER)
Musculoskeletal: No Clubbing and No Cyanosis
Skin: Warm and Dry
Neuro: Awake, Alert and AO x 3
Psych: Calm
# Dyspnea multifactorial secondary to severe symptomatic anemia and community-acquired pneumonia + COPD exacerbation
-See individually below
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
-Stool black and profoundly heme positive
-Hemoglobin of 4.2 from 7.1
-4 units of blood total; 1 u today
-LRD
-celiac panel added by GI
-Continue PPI BID
-IV Iron
-Trend CBC
-Hold aspirin
-Plan EGD/Colonoscopy Thursday
# Sepsis (leukocytosis, tachycardia) secondary community-acquired pneumonia
-COVID, influenza - negative
-Check sputum culture if expectorating
-Blood cultures f/u
-Incentive [place]
-Zosyn
-speech eval
History of necrotizing cavitary lesion with Mycobacterium Avium
-Completed treatment
Acute COPD Exacerbation (severe with pre-BD FEV1: 0.96, 47% predicted, DLco: 28% via PFt from 05/2021)
#Chronic hypoxemic respiratory failure on home O2 (2L/min at rest, 4L/min with activity)
-Continue inhalers
-Start Prednisone - - can provide taper
#Hypokalemia
-monitor and replete
Anxiety/depression
-Continue sertraline
Essential hypertension
-Continue prophylactic aspirin
-Hold losartan
# Hyperbilirubinemia
-resolved
Hyperlipidemia
-Continue statin
Chronic kidney disease
-Renal function baseline
Active smoker
-10 cigarettes a day
DNR/DNI
DVT prophylaxis�SCDs
Anticipated Discharge: > 48 hours
Subjective/Interval History
-
Date of Service: August 16, 2023
Hemoglobin this morning, transfuse 1 unit PRBC
Objective Data
-
Labs:
Laboratory Results
08/16/23 08/16/23
03:55 12:59
WBC 8.5 10.0
Hgb 6.6 L* 8.3 L D
Hct 20.6 L* 25.0 L
Plt Count 251 261
Sodium 134 L
Potassium 4.0
Chloride 106
Carbon Dioxide 22
BUN 15
Creatinine 1.0
Glucose 116 H
Calcium 8.9
Total Bilirubin 0.3
AST 19
ALT 12
Alkaline Phosphatase 65
Vital Signs:
Vital Signs
Temp Pulse Resp BP Pulse Ox
98.4 F 85 20 124/99 99
08/16/23 11:42 08/16/23 11:38 08/16/23 11:38 08/16/23 10:00 08/16/23 11:38
I&O
08/15/23 08/16/23 08/17/23
06:59 06:59 06:59
Intake Total 1320 / 1320 340 / 340 250 / 250
Output Total 200 / 200
Balance 1120 / 1120 340 / 340 250 / 250
Review of Systems
-
History Source: Patient
All other systems: Not reviewed unless documented
Data Reviewed
-
Diagnostic Radiology: Image personally visualized and interpreted and Report Reviewed by me
Labs: Labs Reviewed by me
--- NOTE | 2023-08-16 18:05 | PTCARENOTE ---
Rec'd 1 unit PRBC's in AM with Hgb increasing to 8.3; Tolerated transfusion well; NSR on monitor; OOB to bathroom with assist; Remains on 1 - 2L O2 via nasal cannula; Worked with PT and reported some dizziness that resolved after sitting. Will
continue to monitor and assess
[2023-08-16] MEDS: MELATONIN 3 MG PO (22:11)
[2023-08-17] VITALS (12 sets, daily range): BP systolic 138–167; BP diastolic 66–136
[2023-08-17] MEDS: ZOSYN 50 IV ×4 (04:37→23:16)
[2023-08-17] MEDS: TYLENOL 650 MG PO ×3 (04:37→18:11)
[2023-08-17 05:10] LABS: IgA 150 mg/dl (70-400)
--- NOTE | 2023-08-17 05:48 | PTCARENOTE ---
Educated pt on change of diet in anticipation of a colonoscopy. Pt states she absolutely does not want to have one done. Will pass along to day shift. No signs of bleeding this shift. No BM this shift. Resting in bed with call ramirez in reach.
[2023-08-17 06:02] LABS: Hematocrit 25.5 % (37.0-47.0); Hemoglobin 8.1 g/dL (12.0-16.0); Mean Corp Hgb Conc. 31.8 g/dL (33.0-37.0); Mean Corpuscular Hgb 29.3 pg (27.0-31.0); Mean Corpuscular Volume 92.4 fL (81.0-99.0); Mean Platelet Volume 10.7 fL (7.4-10.4); Platelet Count 234 10^3/uL (130-400); Red Blood Cell Count 2.76 10^6/uL (4.20-5.40); White Blood Cell Count 8.2 10^3/uL (4.8-10.8)
[2023-08-17 06:03] LABS: ALT (SGPT) 13 U/L (0-35); AST (SGOT) 16 U/L (14-36); Albumin 2.8 g/dl (3.5-5.0); Alkaline Phosphatase 68 U/L (38-126); Blood Urea Nitrogen 14 mg/dl (7-17); Calcium 9.4 mg/dl (8.4-10.2); Carbon Dioxide 22 mmol/L (22-30); Chloride 106 mmol/L (98-107); Estimated Creatinine Clearance 36 ml/min; Glucose 93 mg/dl (70-99); Potassium 3.5 mmol/L (3.5-5.1); Sodium 137 mmol/L (135-145); Total Bilirubin 0.5 mg/dl (0.2-1.3); Total Protein 5.2 g/dl (6.3-8.2); eGFR 53.06
[2023-08-17] MEDS: DUONEB 3 ML INH ×3 (07:57→15:30)
[2023-08-17] MEDS: DELTASONE 40 MG PO (08:34)
[2023-08-17] MEDS: PROTONIX IV 40 MG IV ×2 (08:37→21:03)
[2023-08-17] MEDS: NSS (PRESERVATIVE FREE) 10 ML IV ×2 (08:37→21:03)
--- NOTE | 2023-08-17 09:33 | W.PN.GI.CBS2 ---
Today's Communication / Plan
-
CLD and prep today
Plan for enteroscopy/colonoscopy tomorrow
Will follow with you
Assessment / Plan
-
Roya is a 72yo W known to myself with ho SAMIR, COPD and CKD who presents with severe symptomatic anemia with H/bg 4.2 MCV 102 with dark heme + stools. She had EGD/colon for SANDRA done with myself in 04/2023 with polyps, cecal AVMS s/p argon plasma
coagulation. She also had gastritis, 2cm hiatal hernia and duodenal AVM with villous blunting. Labs severe iron deficiency. Normal B12 and folate. CXR PNA that is new and cavitary lesion in RUL zone
Impression
- PNA and SOB
- Severe iron def anemia and melena
Suspect AVM that was seen on EGD/colon 04/2023 in cecum and duodenum
s/p 4 u PRBC on this admission
- SAMIR
- COPD
- CKD
- Depression
- HTN
- HL
Recommendations
- PPI IV BID
- IV iron
- s/p another unit of blood yesterday 08/15
- Monitor stool output, none thus far
- Serial H/H
- CLD today
- She is agreeable to prep for enteroscopy/colonoscopy tomorrow.
Will follow with you
Subjective
Subjective
Date of Service: August 17, 2023
Denies abd pain, nausea/vomiting. She is tolerating CLD Denies SOB now
Objective
Data Reviewed
Laboratory Data:
Laboratory Results
08/17/23 05:22
08/17/23 05:22
Laboratory Results
Magnesium 2.1 mg/dl (1.6-2.3) 08/15/23 04:20
Total Bilirubin 0.5 mg/dl (0.2-1.3) 08/17/23 05:22
AST 16 U/L (14-36) 08/17/23 05:22
ALT 13 U/L (0-35) 08/17/23 05:22
Alkaline Phosphatase 68 U/L (38-126) 08/17/23 05:22
Vital Signs and I&O:
Vital Signs
Temp Pulse Resp BP Pulse Ox
97.9 F 72 16 143/66 95
08/17/23 02:57 08/17/23 07:59 08/17/23 07:59 08/17/23 06:00 08/17/23 08:48
I&O
08/16/23 08/17/23 08/18/23
06:59 06:59 06:59
Intake Total 340 / 340 730 / 730 50 / 50
Output Total 800 / 800
Balance 340 / 340 -70 / -70 50 / 50
Physical Exam
Physical Exam
GEN: No acute distress, conversant, pleasant
HEENT: anicteric, extraocular movements intact, clear oropharynx without exudates
GI: soft, mildly-distended, not tender to palpation, normal active bowel sounds, no hepatosplenomegaly
EXT: warm, well perfused, no edema bilaterally +angioma over cheek
NEURO: AAOx3, non-focal
[2023-08-17] MEDS: DULCOLAX 10 MG PO (10:01)
[2023-08-17] MEDS: NULYTELY SOLUTION 4 LITERS PO (10:02)
--- NOTE | 2023-08-17 14:49 | W.PN.HOSP.TC ---
Today's Communication/Plan
-
EGD/C-Scope tomorrow, monitor cbc
Prep today
Pred taper
Abx
IC, Acapella
Assessment / Plan
Assessment / Plan
General: Laying in bed, mildly tachypneic
HEENT: Normocephalic and Anicteric
Respiratory: Other (dyspnea at rest ) Expiratory wheezing lower Bases B/l
Cardiac: Regular Rhythm
GI: Soft, Non Tender and Non Distended
Rectal: Other (heme + per ER)
Musculoskeletal: No Clubbing and No Cyanosis
Skin: Warm and Dry
Neuro: Awake, Alert and AO x 3
Psych: Calm
# Dyspnea multifactorial secondary to severe symptomatic anemia and community-acquired pneumonia + COPD exacerbation
-See individually below
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
-Stool black and profoundly heme positive
-Hemoglobin of 4.2 from 7.1
-4 units of blood total; 1 u today
-LRD
-celiac panel added by GI
-Continue PPI BID
-IV Iron
-Trend CBC
-Hold aspirin
-Plan EGD/Colonoscopy tomorrow; prep today
# Sepsis (leukocytosis, tachycardia) secondary pneumonia
-COVID, influenza - negative
-Check sputum culture if expectorating
-Blood cultures f/u
-Incentive [place]
-Zosyn
-speech eval
History of necrotizing cavitary lesion with Mycobacterium Avium
-Completed treatment
Acute COPD Exacerbation (severe with pre-BD FEV1: 0.96, 47% predicted, DLco: 28% via PFt from 05/2021)
#Chronic hypoxemic respiratory failure on home O2 (2L/min at rest, 4L/min with activity)
-Continue inhalers
-Start Prednisone - - can start tapering tomorrow; drop 10mg every 3 days
#Hypokalemia
-monitor and replete
Anxiety/depression
-Continue sertraline
Essential hypertension
-Continue prophylactic aspirin
-Hold losartan
# Hyperbilirubinemia
-resolved
Hyperlipidemia
-Continue statin
Chronic kidney disease
-Renal function baseline
Active smoker
-10 cigarettes a day
DNR/DNI
DVT prophylaxis�SCDs
Anticipated Discharge: 24 - 48 hours
Subjective/Interval History
-
Date of Service: August 17, 2023
No acute events
Objective Data
-
Labs:
Laboratory Results
08/17/23
05:22
WBC 8.2
Hgb 8.1 L
Hct 25.5 L
Plt Count 234
Sodium 137
Potassium 3.5
Chloride 106
Carbon Dioxide 22
BUN 14
Creatinine 1.1 H
Glucose 93
Calcium 9.4
Total Bilirubin 0.5
AST 16
ALT 13
Alkaline Phosphatase 68
Vital Signs:
Vital Signs
Temp Pulse Resp BP Pulse Ox
97.8 F 75 18 154/66 99
08/17/23 10:52 08/17/23 11:24 08/17/23 11:24 08/17/23 10:00 08/17/23 11:24
I&O
08/16/23 08/17/23 08/18/23
06:59 06:59 06:59
Intake Total 340 / 340 730 / 730 50 / 50
Output Total 800 / 800
Balance 340 / 340 -70 / -70 50 / 50
Review of Systems
-
History Source: Patient
All other systems: Not reviewed unless documented
Data Reviewed
-
Diagnostic Radiology: Image personally visualized and interpreted and Report Reviewed by me
Labs: Labs Reviewed by me
--- NOTE | 2023-08-17 16:20 | PTCARENOTE ---
Patient is drinking prep for colonoscopy scheduled for tomorrow. Half is completed, stool is liquid brown. Patient is out of bed on commode at this time. Verbalizing understanding of plan of care.
[2023-08-17] MEDS: DUONEB INH (20:10)
--- NOTE | 2023-08-17 20:44 | PTCARENOTE ---
Received pt at change of shift. Pt continuing to drink the bowel prep solution. Stool is liquid brown still. Pt tolerating prep well.
[2023-08-17] MEDS: MELATONIN 3 MG PO (23:16)
[2023-08-18] VITALS (26 sets, daily range): BP systolic 123–169; BP diastolic 54–105
[2023-08-18] MEDS: TYLENOL 650 MG PO ×3 (01:06→19:36)
[2023-08-18] MEDS: ZOSYN 50 IV ×2 (05:27→11:36)
[2023-08-18 05:44] LABS: Hematocrit 29.6 % (37.0-47.0); Hemoglobin 9.3 g/dL (12.0-16.0); Mean Corp Hgb Conc. 31.4 g/dL (33.0-37.0); Mean Corpuscular Hgb 29.3 pg (27.0-31.0); Mean Corpuscular Volume 93.4 fL (81.0-99.0); Mean Platelet Volume 10.3 fL (7.4-10.4); Platelet Count 260 10^3/uL (130-400); Red Blood Cell Count 3.17 10^6/uL (4.20-5.40); Red Cell Dist. Width 18.8 % (11.5-14.5); White Blood Cell Count 7.1 10^3/uL (4.8-10.8)
[2023-08-18 06:45] LABS: ALT (SGPT) 15 U/L (0-35); AST (SGOT) 20 U/L (14-36); Albumin 3.1 g/dl (3.5-5.0); Alkaline Phosphatase 64 U/L (38-126); Blood Urea Nitrogen 11 mg/dl (7-17); Calcium 9.6 mg/dl (8.4-10.2); Carbon Dioxide 28 mmol/L (22-30); Chloride 103 mmol/L (98-107); Estimated Creatinine Clearance 40 ml/min; Glucose 85 mg/dl (70-99); Potassium 3.2 mmol/L (3.5-5.1); Sodium 138 mmol/L (135-145); Total Bilirubin 0.4 mg/dl (0.2-1.3); Total Protein 5.6 g/dl (6.3-8.2); eGFR 59.49
[2023-08-18] MEDS: DUONEB 3 ML INH ×4 (08:24→20:01)
[2023-08-18] MEDS: PROTONIX IV 40 MG IV ×2 (08:39→19:36)
[2023-08-18] MEDS: NSS (PRESERVATIVE FREE) 10 ML IV ×2 (08:39→19:36)
[2023-08-18] MEDS: DELTASONE 30 MG PO (08:39)
[2023-08-18 11:05] LABS: Iron 30 ug/dl (37-170); Magnesium 1.8 mg/dl (1.6-2.3)
[2023-08-18 11:14] LABS: Percent Saturation 9 % (20-50); Total Iron Binding Capacity 306 ug/dl (265-497)
[2023-08-18] MEDS: DUONEB INH (11:37)
[2023-08-18 12:07] LABS: Vitamin B12 > 1000 pg/ml (239-931)
--- NOTE | 2023-08-18 12:30 | PTCARENOTE ---
Pt presents as assessed. Aox3, flat. To and from GI lab via stretcher. Ordered a low residue diet s/p scopes, educated on new diet. Pt sleeping comfortably at this time.
[2023-08-18] MEDS: KCL 270 MEQ IV (12:47)
[2023-08-18] MEDS: FERRLECIT 110 MG IV (15:39)
--- NOTE | 2023-08-18 16:53 | W.PN.HOSP.TC ---
Today's Communication/Plan
-
watch tonight
Possible discharge in am
Assessment / Plan
Assessment / Plan
72-year-old female with dyspnea
Endoscopy 08/18/2023-normal esophagus. Small hiatal hernia. Single submucosal nodule in the stomach. Blood in the vessels of the duodenum and in the second portion of the duodenum. 3 recently bleeding angiectasia's in the duodenum treated with
APC. Duodenal diverticulum. Examined portion of the jejunum was normal.
Colonoscopy 08/18/2023-diverticulosis in the sigmoid colon, descending colon and transverse colon. 2 nonbleeding colonic angiectasia's. Multiple polyps, some were removed. Internal hemorrhoids
Echo 08/14/2023-normal LV systolic function. Ejection fraction 60 to 65%. Moderate TR. Pulmonary artery pressure 50 to 55 mmHg.
# Dyspnea multifactorial secondary to severe symptomatic anemia and community-acquired pneumonia + COPD exacerbation
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
-Stool black and profoundly heme positive
-Hemoglobin of 4.2 on admission now 9.3
-4 units of blood total so far
-LRD
-celiac panel added by GI
-Continue PPI BID
-Check iron studies again given transfusion before giving IV iron.
-Trend CBC
-SANDRA- IV iron
-Hold aspirin
-Needs an EUS for the antral nodule
-Patient may need hematology follow-up as outpatient for iron infusions and monitoring of hemoglobin and to consider octreotide for angiectasia's with chronic iron deficiency anemia.
# Sepsis (leukocytosis, tachycardia) secondary pneumonia
-COVID, influenza - negative
-Check sputum culture if expectorating
-Blood cultures neg
-Incentive [place]
-Zosyn to be changed to Cefdinir
-speech eval-Without aspiration
# Hypokalemia-replace
# Acute kidney injury-resolved
# Acute COPD Exacerbation (severe with pre-BD FEV1: 0.96, 47% predicted, DLco: 28% via PFt from 05/2021)
Chronic hypoxemic respiratory failure on home O2 (2L/min at rest, 4L/min with activity)
Off O2 at rest now and sats 94 %
-Patient on Dulera inhaler, Spiriva as outpatient
-Continue inhalers
-Prednisone - - can start tapering tomorrow; drop 10mg every 3 days
# History of necrotizing cavitary lesion with Mycobacterium Avium
-Completed treatment
# Anxiety/depression
-Continue sertraline
# Essential hypertension
-restart losartan
# Hyperbilirubinemia
-resolved
#Hyperlipidemia
-Continue statin
# History of AAA repair
# Insomnia-on Unisom
#Active smoker
-10 cigarettes a day
-Cessation Counselling
#DNR/DNI
#DVT prophylaxis�SCDs
Discussed with nursing
D/W GI
Anticipated Discharge: Within 24 hours
Subjective/Interval History
-
Date of Service: August 18, 2023
Objective Data
-
Labs:
Laboratory Results
08/18/23
05:34
WBC 7.1
Hgb 9.3 L
Hct 29.6 L
Plt Count 260
Sodium 138
Potassium 3.2 L
Chloride 103
Carbon Dioxide 28
BUN 11
Creatinine 1.0
Glucose 85
Calcium 9.6
Total Bilirubin 0.4
AST 20
ALT 15
Alkaline Phosphatase 64
Vital Signs:
Vital Signs
Temp Pulse Resp BP Pulse Ox
97.9 F 94 19 126/54 100
08/18/23 15:10 08/18/23 15:43 08/18/23 15:43 08/18/23 14:30 08/18/23 15:43
I&O
08/17/23 08/18/23 08/19/23
06:59 06:59 06:59
Intake Total 730 / 730 750 / 750
Output Total 800 / 800 900 / 900
Balance -70 / -70 750 / 750 -900 / -900
[2023-08-18] MEDS: ZOSYN IV (17:01)
[2023-08-18] MEDS: LIPITOR 20 MG PO (17:35)
[2023-08-18] MEDS: MAGNESIUM OXIDE 500 MG PO (17:35)
[2023-08-18] MEDS: ZOLOFT 100 MG PO (17:35)
[2023-08-18] MEDS: COZAAR 25 MG PO (17:35)
[2023-08-18] MEDS: OMNICEF 300 MG PO (19:36)
[2023-08-18] MEDS: SYMBICORT 160/4.5 MCG INHALER 2 PUFF INH (20:02)
[2023-08-18] MEDS: MELATONIN 3 MG PO (21:26)
[2023-08-19] VITALS (11 sets, daily range): BP systolic 137–172; BP diastolic 65–87
[2023-08-19 05:12] LABS: Hematocrit 29.1 % (37.0-47.0); Mean Corp Hgb Conc. 30.9 g/dL (33.0-37.0); Mean Corpuscular Hgb 29.2 pg (27.0-31.0); Mean Corpuscular Volume 94.5 fL (81.0-99.0); Mean Platelet Volume 10.6 fL (7.4-10.4); Platelet Count 263 10^3/uL (130-400); Red Blood Cell Count 3.08 10^6/uL (4.20-5.40); Red Cell Dist. Width 18.4 % (11.5-14.5); White Blood Cell Count 7.6 10^3/uL (4.8-10.8)
[2023-08-19 05:18] LABS: ALT (SGPT) 15 U/L (0-35); AST (SGOT) 17 U/L (14-36); Albumin 3.1 g/dl (3.5-5.0); Alkaline Phosphatase 63 U/L (38-126); Blood Urea Nitrogen 15 mg/dl (7-17); Calcium 9.2 mg/dl (8.4-10.2); Carbon Dioxide 27 mmol/L (22-30); Chloride 104 mmol/L (98-107); Estimated Creatinine Clearance 33 ml/min; Glucose 85 mg/dl (70-99); Potassium 3.3 mmol/L (3.5-5.1); Sodium 137 mmol/L (135-145); Total Bilirubin 0.2 mg/dl (0.2-1.3); Total Protein 5.5 g/dl (6.3-8.2)
[2023-08-19] MEDS: KCL 20 MEQ PO (06:10)
[2023-08-19] MEDS: TYLENOL 650 MG PO ×2 (06:13→13:55)
--- NOTE | 2023-08-19 06:16 | W.PN.UPDATE ---
Update Note
Progress Note Update
K 3.3, will order KCL 20meq PO x1.
[2023-08-19] MEDS: SPIRIVA RESPIMAT 2.5 MCG 2 PUFF INH (06:18)
[2023-08-19] MEDS: DUONEB 3 ML INH ×3 (06:18→15:41)
[2023-08-19] MEDS: SYMBICORT 160/4.5 MCG INHALER 2 PUFF INH (06:18)
--- NOTE | 2023-08-19 06:28 | PTCARENOTE ---
Cared for pt overnight. aaox3, pleasant. tylenol for sinus pain. No obvious signs of bleeding. hgb stable this morning at 9.0. BI MANAGER contacted for low K, PO was ordered. Bp running a little high overnight. No other issues, will monitor.
[2023-08-19] MEDS: NSS (PRESERVATIVE FREE) 10 ML IV (07:35)
[2023-08-19] MEDS: OMNICEF 300 MG PO (07:35)
[2023-08-19] MEDS: PROTONIX IV 40 MG IV (07:35)
[2023-08-19] MEDS: VISBIOME 1 CAP PO (07:35)
[2023-08-19] MEDS: MAGNESIUM OXIDE 500 MG PO (07:36)
[2023-08-19] MEDS: COZAAR 25 MG PO ×2 (07:36→10:20)
[2023-08-19] MEDS: DELTASONE 30 MG PO (07:36)
[2023-08-19] MEDS: THERAGRAN 1 TABLET PO (07:36)
[2023-08-19] MEDS: ZOLOFT 100 MG PO (07:36)
--- NOTE | 2023-08-19 11:24 | W.PN.HOSP.TC ---
Addendum entered and electronically signed by Guille Lynch MD 08/19/23 14:43:
Discussed with GI. Okay for discharge
Total discharge phonation time 37 minutes
Original Note:
Today's Communication/Plan
-
Await GI eval today
Possible discharge
Assessment / Plan
Assessment / Plan
72-year-old female with dyspnea
Endoscopy 08/18/2023-normal esophagus. Small hiatal hernia. Single submucosal nodule in the stomach. Blood in the vessels of the duodenum and in the second portion of the duodenum. 3 recently bleeding angiectasia's in the duodenum treated with
APC. Duodenal diverticulum. Examined portion of the jejunum was normal.
Colonoscopy 08/18/2023-diverticulosis in the sigmoid colon, descending colon and transverse colon. 2 nonbleeding colonic angiectasia's. Multiple polyps, some were removed. Internal hemorrhoids
Echo 08/14/2023-normal LV systolic function. Ejection fraction 60 to 65%. Moderate TR. Pulmonary artery pressure 50 to 55 mmHg.
CVS: S1-S2 normal
Chest: CTA B/L
Abdomen: Soft, NT / Bowel sounds present
Extremities: No edema, normal pulses
ROUTE RELIEF DRIVER: Non focal exam
# Dyspnea multifactorial secondary to severe symptomatic anemia and community-acquired pneumonia + COPD exacerbation
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
-Stool black and profoundly heme positive
-Hemoglobin of 4.2 on admission now 9.0
-4 units of blood total so far
-LRD
-celiac panel added by GI
-Continue PPI BID
-SANDRA- IV iron
-Hold aspirin
-Needs an EUS for the antral nodule
-Patient may need hematology follow-up as outpatient for iron infusions and monitoring of hemoglobin and to consider octreotide for angiectasia's with chronic iron deficiency anemia.
# Hypokalemia-replace
# Sepsis (leukocytosis, tachycardia) secondary pneumonia
-COVID, influenza - negative
-Check sputum culture if expectorating
-Blood cultures neg
-Incentive [place]
-Zosyn to be changed to Cefdinir
-speech eval-Without aspiration
# Hypokalemia-replace
# Acute kidney injury-resolved
# Acute COPD Exacerbation (severe with pre-BD FEV1: 0.96, 47% predicted, DLco: 28% via PFt from 05/2021)
Chronic hypoxemic respiratory failure on home O2 (2L/min at rest, 4L/min with activity)
Off O2 at rest now and sats 94 %
-Patient on Dulera inhaler, Spiriva as outpatient
-Continue inhalers
-Prednisone - drop 10mg every 3 days
# History of necrotizing cavitary lesion with Mycobacterium Avium
-Completed treatment
# Anxiety/depression
-Continue sertraline
# Essential hypertension
-Increase losartan to 50 mg daily
# Hyperbilirubinemia
-resolved
#Hyperlipidemia
-Continue statin
# History of AAA repair
# Insomnia-on Unisom
#Active smoker
-10 cigarettes a day
-Cessation Counselling
#DNR/DNI
#DVT prophylaxis�SCDs
Discussed with nursing
D/W GI
Called and spoke to son and updated.
Anticipated Discharge: Today
Subjective/Interval History
-
Date of Service: August 19, 2023
Objective Data
-
Labs:
Laboratory Results
08/19/23
04:40
WBC 7.6
Hgb 9.0 L
Hct 29.1 L
Plt Count 263
Sodium 137
Potassium 3.3 L
Chloride 104
Carbon Dioxide 27
BUN 15
Creatinine 1.2 H
Glucose 85
Calcium 9.2
Total Bilirubin 0.2
AST 17
ALT 15
Alkaline Phosphatase 63
Vital Signs:
Vital Signs
Temp Pulse Resp BP Pulse Ox
97.6 F 104 23 158/78 96
08/19/23 07:50 08/19/23 11:08 08/19/23 11:08 08/19/23 10:00 08/19/23 11:08
I&O
08/18/23 08/19/23 08/20/23
06:59 06:59 06:59
Intake Total 750 / 750
Output Total 900 / 900
Balance 750 / 750 -900 / -900
--- NOTE | 2023-08-19 13:12 | W.PN.GI.CBS2 ---
Addendum entered and electronically signed by Sima Swanson MD 08/19/23 14:27:
I saw and examined the patient.
The [employer] MANAGER's note was reviewed and I agree with the note.
Comment: Acute and chronic blood loss anemia. She was noted to have bleeding small bowel angioectasias which were treated and also has known colonic angioectasias which were treated in the past on repeat colonoscopy her cecal angioectasias were not
bleeding, had multiple colon polyps removed(TA's, SSL and HP's), repeat colonoscopy in 3 years. Continue to monitor hemoglobin needs to follow-up with hematology for IV iron and regular monitoring of hemoglobin and as needed transfusions if needed
and consider octreotide if she has recurrent bleeding from angioectasias. Continue PPI daily, okay for DC with outpatient GI follow-up with and also consider outpatient capsule endoscopy. She also needs outpatient upper endoscopic ultrasound
for the gastric antral nodule
Original Note:
Today's Communication / Plan
-
s/p EGD with 3 Angioectasias with APC
transition PPI to daily
ok for GI for disharge as hbg stable at 9
discussed hematology OP follow up for chronic anemia
sent message to arrange GI follow up with Dr. SANTO and [employer] MANAGER/PA
cont diet
[place] text with Dr. Scott for discharge
Assessment / Plan
-
oRya is a 72yo W known to myself with ho SAMIR, COPD and CKD who presents with severe symptomatic anemia with H/bg 4.2 MCV 102 with dark heme + stools. She had EGD/colon for SANDRA done with myself in 04/2023 with polyps, cecal AVMS s/p argon plasma
coagulation. She also had gastritis, 2cm hiatal hernia and duodenal AVM with villous blunting. Labs severe iron deficiency. Normal B12 and folate. CXR PNA that is new and cavitary lesion in RUL zone
Impression
- PNA and SOB
- Severe iron def anemia and melena
Suspect AVM that was seen on EGD/colon 04/2023 in cecum and duodenum
s/p 4 u PRBC on this admission
repeat EGD 08/17 with papule , 3 recently bleeding angioectasia in duodenum, s/p APC , duodenal diverticulum no specimens collected
- SAMIR
- COPD
- CKD
- Depression
- HTN
- HL
Recommendations
s/p EGD with 3 Angioectasias with APC
transition PPI to daily
ok for GI for disharge as hbg stable at 9
discussed hematology OP follow up for chronic anemia
sent message to arrange GI follow up with Dr. SANTO and [employer] MANAGER/PA
cont diet
[place] text with Dr. Scott for discharge
Subjective
Subjective
Date of Service: August 19, 2023
08/17 brown stool on low residue diet
Objective
Data Reviewed
Laboratory Data:
Laboratory Results
08/19/23 04:40
08/19/23 04:40
Laboratory Results
Magnesium 1.8 mg/dl (1.6-2.3) 08/18/23 05:34
Total Bilirubin 0.2 mg/dl (0.2-1.3) 08/19/23 04:40
AST 17 U/L (14-36) 08/19/23 04:40
ALT 15 U/L (0-35) 08/19/23 04:40
Alkaline Phosphatase 63 U/L (38-126) 08/19/23 04:40
Vital Signs and I&O:
Vital Signs
Temp Pulse Resp BP Pulse Ox
98.2 F 104 23 158/78 96
08/19/23 11:34 08/19/23 11:08 08/19/23 11:08 08/19/23 10:00 08/19/23 11:08
I&O
08/18/23 08/19/23 08/20/23
06:59 06:59 06:59
Intake Total 750 / 750
Output Total 900 / 900
Balance 750 / 750 -900 / -900
Physical Exam
Physical Exam
HEENT: Anicteric and Moist mucous membranes
Cardiology: Normal Sinus Rhythm
Pulmonary: Other (course breath sound chronically)
GI: Soft, Non Distended and Non Tender
Extremities: No Edema
Neuro: Non Focal
[2023-08-19] MEDS: FERRLECIT 110 MG IV (13:55)
--- NOTE | 2023-08-19 14:41 | W.DS.TRANS ---
DC Summary - Film Writer
-
Discharge Instructions:
Discharge Diagnosis/Procedures Symptomatic anemia, angiectasia, multiple colon
polyps, pneumonia, COPD exacerbation, SAMIR
infection, anxiety and depression, hypertension,
high cholesterol, insomnia, smoking
Others Tests Outpatient capsule endoscopy. Outpatient
endoscopic ultrasound for the gastric nodule.
Repeat colonoscopy in 3 years
Other Services VN
Instructions:
Stand-Alone Forms:
Changes to Home Medications: Yes
Discharge Medications:
DC Medications w/original date entered in [facility]
tiotropium bromide 2.5 mcg/actuation mist for inhalation (Spiriva Respimat) 2 puff inhalation R DAILY Lung/breathing issues 07/01/21
aspirin 81 mg chewable tablet 81 mg PO DAILY Blood clot prevention/tx 07/08/21
sertraline 100 mg tablet 100 mg PO DAILY Mental Health/Anxiety 07/08/21
xhywaecorgfa-guammarq-jtmntl tablet 1 tab PO DAILY Supplement 10/24/22
acetaminophen 500 mg tablet 500 mg PO Q6H PRN pain 12/29/22
doxylamine succinate 25 mg tablet (Unisom (doxylamine)) 25 mg PO HS PRN insomnia 12/29/22
mometasone-formoterol HFA 200 mcg-5 mcg/actuation aerosol inhaler (Dulera) 2 inh inhalation BID Lung/Breathing Issues 08/14/23
benzonatate 100 mg capsule 200 mg (2 x 100 mg) PO TIDPRN PRN cough #30 caps 08/19/23
cefdinir 300 mg capsule 300 mg PO Q12 Infection #3 caps 08/19/23
ferrous sulfate 325 mg (65 mg iron) tablet (Feosol) 650 mg (2 x 325 mg (65 mg iron)) PO DAILY anemia #0 tabs 08/19/23
lactobacillus combination no.4 3 billion cell capsule (Probiotic) 3,000 mmu cells PO DAILY Supplement #0 caps 08/19/23
losartan 50 mg tablet 50 mg PO DAILY Blood pressure #60 tabs 08/19/23
magnesium oxide 500 mg (2 x 250 mg magnesium) PO DAILY Electrolyte Repletion #0 tabs 08/19/23
pantoprazole 40 mg tablet,delayed release 40 mg PO DAILY Gastrointestinal issue #60 tabs 08/19/23
prednisone 10 mg tablet See Rx Instructions .Route .COMPLEX #12 tabs 08/19/23
simvastatin 40 mg tablet 40 mg PO DAILY High cholesterol #0 tabs 08/19/23
Home Medication Changes
new
prednisone 10 mg tablet See Rx Instructions .Route .COMPLEX #12 tabs 08/19/23
pantoprazole 40 mg tablet,delayed release 40 mg PO DAILY Gastrointestinal issue #60 tabs 08/19/23
cefdinir 300 mg capsule 300 mg PO Q12 Infection #3 caps 08/19/23
dose change losartan
Pending Results: Yes
Total time spent discharging patient (in min): biopsy
--- NOTE | 2023-08-19 14:49 | PN.CDI ---
Addendum entered and electronically signed by Guille Lynch MD 08/19/23 18:39:
Documentation is complete at this time.
Original Note:
CDI
- -
CDI:
Physician Documentation Request
Admit Date: 08/13/23 23:40
Dear Doctor Cris,
Patient admitted for sepsis.
08/18 Hospitalist PN: 'Acute kidney injury-resolved'
Laboratory Tests
08/13/23 08/16/23 08/19/23
21:37 03:55 04:40
Creatinine 1.3 H 1.0 1.2 H
The purpose of this query is not to question medical judgement, but to ensure the accuracy of the conditions reported for your patient.
There is either a lack of clinical support for this condition in the current medical record, or there is a lack of recognized standard criteria to support the condition.
Criteria for DARCIE*
1 Increase in serum creatinine by > or = to 0.3 mg/dL (> or = to 26.5 micromol/L) within 48 hours, OR
2 Increase in serum creatinine to > or = to 1.5 times baseline, which is known or presumed to have occurred within 7 days, OR
3 Urine volume < 0.5 nL/kg/hour for six hours
The request is for one of the following:
- Additional documentation to support the condition. Indicate if this is in lieu of what may be considered standard criteria, and/or support why the standard criteria may not be present for this patient.
- A more appropriate diagnosis, reflecting the patient's condition
- DARCIE remains a known or suspected condition for this patient and is further supported by (include additional documentation in the medical record)
- DARCIE has been ruled out and a more appropriate diagnosis for this patient's condition is .
- Other (please specify)
Use of terms such as suspected, likely, concern for, or probable (associated with a specific diagnosis that is being evaluated, monitored, or treated as if it exists) are acceptable and can be coded in the inpatient setting, when documented at the
time of discharge.
Thank you,
Ning Hinson RN, BSN
CDI Specialist
Available via [place] text
Please use your independent medical judgment in providing your response.
--- NOTE | 2023-08-19 15:34 | W.DS.TRANS ---
Addendum entered and electronically signed by Guille Lynch MD 08/19/23 18:33:
Dictation- [id number]
Original Note:
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
-
Discharge Instructions:
Discharge Diagnosis/Procedures Symptomatic anemia, angiectasia, multiple colon
polyps, pneumonia, COPD exacerbation, SAMIR
infection, anxiety and depression, hypertension,
high cholesterol, insomnia, smoking
Blood Work cbc,bmp 3-4 days
Others Tests Outpatient capsule endoscopy. Outpatient
endoscopic ultrasound for the gastric nodule.
Repeat colonoscopy in 3 years
Other Services VN
Instructions:
Stand-Alone Forms:
Changes to Home Medications: Yes
Discharge Medications:
DC Medications w/original date entered in [facility]
tiotropium bromide 2.5 mcg/actuation mist for inhalation (Spiriva Respimat) 2 puff inhalation R DAILY Lung/breathing issues 07/01/21
aspirin 81 mg chewable tablet 81 mg PO DAILY Blood clot prevention/tx 07/08/21
sertraline 100 mg tablet 100 mg PO DAILY Mental Health/Anxiety 07/08/21
wxdyibcpkjfi-yoiciuoz-direej tablet 1 tab PO DAILY Supplement 10/24/22
acetaminophen 500 mg tablet 500 mg PO Q6H PRN pain 12/29/22
doxylamine succinate 25 mg tablet (Unisom (doxylamine)) 25 mg PO HS PRN insomnia 12/29/22
mometasone-formoterol HFA 200 mcg-5 mcg/actuation aerosol inhaler (Dulera) 2 inh inhalation BID Lung/Breathing Issues 08/14/23
benzonatate 100 mg capsule 200 mg (2 x 100 mg) PO TIDPRN PRN cough #30 caps 08/19/23
cefdinir 300 mg capsule 300 mg PO Q12 Infection #3 caps 08/19/23
ferrous sulfate 325 mg (65 mg iron) tablet (Feosol) 650 mg (2 x 325 mg (65 mg iron)) PO DAILY anemia #0 tabs 08/19/23
lactobacillus combination no.4 3 billion cell capsule (Probiotic) 3,000 mmu cells PO DAILY Supplement #0 caps 08/19/23
losartan 50 mg tablet 50 mg PO DAILY Blood pressure #60 tabs 08/19/23
magnesium oxide 500 mg (2 x 250 mg magnesium) PO DAILY Electrolyte Repletion #0 tabs 08/19/23
pantoprazole 40 mg tablet,delayed release 40 mg PO DAILY Gastrointestinal issue #60 tabs 08/19/23
potassium chloride 20 mEq tablet,extended release 20 meq PO DAILY Electrolyte Repletion #2 tabs 08/19/23
prednisone 10 mg tablet See Rx Instructions .Route .COMPLEX #12 tabs 08/19/23
simvastatin 40 mg tablet 40 mg PO DAILY High cholesterol #0 tabs 08/19/23
Home Medication Changes
new
prednisone 10 mg tablet See Rx Instructions .Route .COMPLEX #12 tabs 08/19/23
pantoprazole 40 mg tablet,delayed release 40 mg PO DAILY Gastrointestinal issue #60 tabs 08/19/23
cefdinir 300 mg capsule 300 mg PO Q12 Infection #3 caps 08/19/23
dose change losartan
Pending Results: Yes
Total time spent discharging patient (in min): biopsy
[2023-08-19 15:39] LABS: tTG IgA Antibody 4.6 EU/ml (0-19); tTG IgG Antibody 6.1 EU/ml (0-19)
[2023-08-19] MEDS: APRESOLINE 5 MG IV (15:40)
--- NOTE | 2023-08-19 18:27 | PTCARENOTE ---
Pt for d/c home. Instructions and med list reviewed with pt. IV and monitor equipment removed. Belongings collected from room. D/c off unit via wheelchair to leave with daughter in law.
[2023-08-24 07:36] LABS: Endomysial IgA Antibody Titer <1:10 (<1:10)
== END 2023-08-19 18:15 | disposition home or self-care (01) | DRG 871 ==
LOC: IMU 23:40
PROVIDERS: Emergency Medicine; Internal Medicine; Internal Medicine Gastroenterology; Nurse Practitioner Gerontology; ADMITTING PHYSICIAN Hospitalist; ATTENDING PHYSICIAN Hospitalist; EMERGENCY PHYSICIAN Student in an Organized Health Care Education/Training Program; FAMILY PHYSICIAN Internal Medicine; OTHER PHYSICIAN Internal Medicine Gastroenterology
PROC: 30233N1 Transfusion of Nonautologous Red Blood Cells into Peripheral Vein, Percutaneous Approach (ICD-10-PCS; 2023-08-13)
PROC: 0DBK8ZX Excision of Ascending Colon, Via Natural or Artificial Opening Endoscopic, Diagnostic (ICD-10-PCS; 2023-08-18)
PROC: 0DBN8ZX Excision of Sigmoid Colon, Via Natural or Artificial Opening Endoscopic, Diagnostic (ICD-10-PCS; 2023-08-18)
PROC: 0DBH8ZX Excision of Cecum, Via Natural or Artificial Opening Endoscopic, Diagnostic (ICD-10-PCS; 2023-08-18)
PROC: 0DBL8ZX Excision of Transverse Colon, Via Natural or Artificial Opening Endoscopic, Diagnostic (ICD-10-PCS; 2023-08-18)
PROC: 0D598ZZ Destruction of Duodenum, Via Natural or Artificial Opening Endoscopic (ICD-10-PCS; 2023-08-18)
PROC: 0DBQ8ZX Excision of Anus, Via Natural or Artificial Opening Endoscopic, Diagnostic (ICD-10-PCS; 2023-08-18)
PROC: 0W3P8ZZ Control Bleeding in Gastrointestinal Tract, Via Natural or Artificial Opening Endoscopic (ICD-10-PCS; 2023-08-18)
DX: A41.89 Other specified sepsis (principal); J18.9 Pneumonia, unspecified organism; K31.811 Angiodysplasia of stomach and duodenum with bleeding; K55.21 Angiodysplasia of colon with hemorrhage; D62 Acute posthemorrhagic anemia; J44.1 Chronic obstructive pulmonary disease with (acute) exacerbation; J44.0 Chronic obstructive pulmonary disease with (acute) lower respiratory infection; J96.11 Chronic respiratory failure with hypoxia; N17.9 Acute kidney failure, unspecified; I12.9 Hypertensive chronic kidney disease with stage 1 through stage 4 chronic kidney disease, or unspecified chronic kidney disease; N18.9 Chronic kidney disease, unspecified; E78.00 Pure hypercholesterolemia, unspecified; F32.A Depression, unspecified; K57.50 Diverticulosis of both small and large intestine without perforation or abscess without bleeding; K64.8 Other hemorrhoids; K21.9 Gastro-esophageal reflux disease without esophagitis; K44.9 Diaphragmatic hernia without obstruction or gangrene; F41.9 Anxiety disorder, unspecified; F17.210 Nicotine dependence, cigarettes, uncomplicated; I71.60 Thoracoabdominal aortic aneurysm, without rupture, unspecified; E80.6 Other disorders of bilirubin metabolism; I72.2 Aneurysm of renal artery; G47.00 Insomnia, unspecified; I71.43 Infrarenal abdominal aortic aneurysm, without rupture; E87.6 Hypokalemia; R91.1 Solitary pulmonary nodule; D53.9 Nutritional anemia, unspecified; Z66 Do not resuscitate; Z11.52 Encounter for screening for COVID-19; Z79.82 Long term (current) use of aspirin; Z99.81 Dependence on supplemental oxygen
CPT/HCPCS: 88305; 71046; 80053; 82248; 82607; 82728; 82746; 82784; 83516; 83540; 83550; 83735; 83880; 84443; 84484; 85025; 85027; 86231; 86850; 86900; 86901; 86920; 87040; 87502; 87811; 92526; 92610; 93005; 93306; 94640; 96365; 97116; 97163; 97166; 99291; J2916; P9016

== ENCOUNTER 2024-01-28 15:31 | Inpatient (IN) | payer OTHER, SELFPAY ==
[2024-01-28] VITALS (12 sets, daily range): BP systolic 104–144; BP diastolic 53–98
--- NOTE | 2024-01-28 10:43 | ED.MUSCINJ ---
HPI-Injury
General
Chief Complaint: Fall
Source: patient
Exam Limitations: none
Time Seen by Provider: 01/28/24 10:16
History of Present Illness-Injury
Initial Injury comments:
73-year-old female history of COPD hypertension presents complaining of ongoing left hip and groin pain after fall she sustained 1 week ago. She tripped in the kitchen and fell on her left side. She typically is ambulatory without any assistance
of a cane or walker. She notes increased pain with bearing weight currently to the left groin. No prior injury to the hip. No other complaints at this time
Past History
Past History
ED Past Medical History: COPD, Hypercholesterolemia and Psychiatric (depression)
ED Past Surgical History: Gynecological and Tonsilectomy
Social History
Tobacco: Smoker
Alcohol: None
Personal:
Living: alone
Phy Exam
Physical Exam
Physical Exam:
General: Well-appearing female no acute respiratory distress
Musculoskeletal exam: Left hip without deformity. She is tender anteriorly nontender over the lateral aspect of hip. No pain with internal or external rotation.
Vascular: 2+ dorsalis pedis pulse left foot
Neurologic: Alert and oriented no facial asymmetry
Injury Course
Orders/Labs/Results
Orders:
Orders
01/28/24 10:39
CR Hip - LT w/wo Pel 2-3 Vw* Urgent
Comment:
Reason For Exam: fall, left hip pain
Include a pelvis x-ray?: Yes
01/28/24 11:15
CT Pelvis W/o Iv Contrast Urgent
Comment:
Reason For Exam: left hip pain
01/28/24 11:36
HYDROmorphone [Dilaudid] 0.5 mg IV NOW STA
01/28/24 13:12
Complete Blood Count/With Diff Urgent
Comprehensive Metabolic Panel Urgent
Abnormal Lab Results
01/28/24
13:12
RBC 3.46 L 10^6/uL
(4.20-5.40)
Hgb 11.0 L g/dL
(12.0-16.0)
Hct 31.8 L %
(37.0-47.0)
MCH 31.8 H pg
(27.0-31.0)
Abs Immat Gran (auto) 0.1 H 10^3/uL
(0-0.05)
Absolute Neuts (auto) 7.0 H 10^3/uL
(1.4-6.5)
Neutrophils % 76.1 H %
(42.2-75.2)
Lymphocytes % 13.6 L %
(20.5-51.1)
BUN 21 H mg/dl
(7-17)
Glucose 101 H mg/dl
(70-99)
Total Protein 6.2 L g/dl
(6.3-8.2)
01/28/24 13:12
01/28/24 13:12
*Critical Care Note
Total Time (30-74mins, 75-104mins- exclusive of procedures): Not Applicable
Update Note
Update Note:
X-ray and CAT scan demonstrate subcapital femur fracture left hip. Patient given medicine for pain. Labs reviewed. Admit to hospitalist with orthopedic team made aware
ED Attending Note
-
Portions of this chart may have been created with voice recognition software.� Occasional wrong word or��sound alike� substitutions may have occurred due to the inherent limitations of voice recognition software.
Discharge Plan
Departure
Patient Disposition: Admit
Date of Disposition: 01/28/24
Time of Disposition: 14:51
Admit to: Telemetry
Presentation/result/management discussed w/ accepting MD/DO: Hospitalist
Discharge Problem:
Closed left hip fracture
Prescriptions:
No Action
Spiriva Respimat 1 PUFF mist
2 puff inhalation R DAILY
sertraline 100 MG tablet
100 mg PO DAILY
acetaminophen 500 mg Tablet
500 mg PO Q6H PRN (Reason: mild pain)
Unisom (doxylamine) 25 mg Tablet
25 mg PO HSPRN PRN (Reason: insomnia)
Dulera 200-5 mcg/actuation HFA aerosol inhaler
2 inh INHALATION R BID
losartan 50 mg Tablet
50 mg PO DAILY Qty: 60 0RF
Theragen Tablet
1 tab PO DAILY
aspirin 81 mg Tablet,Delayed Release (Dr/Ec)
81 mg PO DAILY
Visbiome 112.5 billion cell Capsule
1 cap PO DAILY
simvastatin 40 mg tablet
40 mg PO QPM
ferrous sulfate [Feosol] 325 MG tablet
325 mg PO DAILY
magnesium oxide 250 mg magnesium tablet
250 mg PO DAILY
Referrals:
Lauri Garcia MD [Family Provider] -
Interventions
Interventions:
*Risk Screen - Suicide Last Done: 01/28/24 10:09
*General Assessment Last Done: 01/28/24 10:09
*Neglect/Abuse Screening Last Done: 01/28/24 10:09
ED- Fall Risk Assessment Last Done: 01/28/24 12:00
*ED COVID-19 Vaccine History Last Done: 01/28/24 10:09
ED-Musculoskeletal Assessment Last Done: 01/28/24 12:00
ED- Neurological Assessment Last Done: 01/28/24 12:00
ED-Skin Assessment Last Done: 01/28/24 12:00
Discharge Date and Time
Print Language: SERBIAN
[2024-01-28] MEDS: DILAUDID 0.5 MG IV (12:12)
[2024-01-28 14:12] LABS: % Basophils 0.8 % (0-2); % Eosinophils 2.6 % (0-6); % Immature Granulocytes 0.5 % (0-0.5); % Lymphocytes 13.6 % (20.5-51.1); % Monocytes 6.4 % (1.7-9.3); % Neutrophils 76.1 % (42.2-75.2); Absolute Basophils 0.1 10^3/uL (0-0.2); Absolute Eosinophils 0.2 10^3/uL (0-0.7); Absolute Immature Granulocytes 0.1 10^3/uL (0-0.05); Absolute Lymphocytes 1.3 10^3/uL (1.2-3.4); Absolute Monocytes 0.6 10^3/uL (0.1-0.6); Hematocrit 31.8 % (37.0-47.0); Mean Corp Hgb Conc. 34.6 g/dL (33.0-37.0); Mean Corpuscular Hgb 31.8 pg (27.0-31.0); Mean Corpuscular Volume 91.9 fL (81.0-99.0); Mean Platelet Volume 9.6 fL (7.4-10.4); Nucleated Red Blood Cells % 0 %; Platelet Count 274 10^3/uL (130-400); Red Blood Cell Count 3.46 10^6/uL (4.20-5.40); Red Cell Dist. Width 13.3 % (11.5-14.5); White Blood Cell Count 9.2 10^3/uL (4.8-10.8)
[2024-01-28 14:34] LABS: ALT (SGPT) 15 U/L (0-35); AST (SGOT) 19 U/L (14-36); Albumin 3.9 g/dl (3.5-5.0); Alkaline Phosphatase 93 U/L (38-126); Blood Urea Nitrogen 21 mg/dl (7-17); Calcium 9.5 mg/dl (8.4-10.2); Carbon Dioxide 24 mmol/L (22-30); Chloride 101 mmol/L (98-107); Glucose 101 mg/dl (70-99); Potassium 4.7 mmol/L (3.5-5.1); Sodium 137 mmol/L (135-145); Total Bilirubin 0.2 mg/dl (0.2-1.3); Total Protein 6.2 g/dl (6.3-8.2); eGFR 59.12
--- NOTE | 2024-01-28 15:03 | HPS.HSE ---
Family Physician
-
Family Physician: Lauri Garcia
Chief Complaint
-
left hip and groin pain
History of Present Illness
Ms. Roya Jolly is a 73 yo man with hx COPD, HLD, Depression, AAA s/p repair, current smoker presents with on-going groin pain and hip pain after sustained a fall one week ago.
Patient does not use a cane or walker. She slipped in the kitchen one week ago and fell on left side. Since she has had pain and has been leaning on golden or furniture to get around. When asked why she didn't come in earlier she states shew as
'stubborn'. No preceding chest pain, palpitations or lightheadedness before fall. She denies hitting her head.
No fevers/chills. + chronic cough. Denies shortness of breath or wheezing. She has oxygen at home that rarely needs to use. No abdominal pain. No nausea/vomiting. No LE swelling or rash. She denies chest pain with exertion.
Medical History
Past Medical History
Past Medical History: Reports Other ( Mycobacterium Avium, COPD, hypertension, hyperlipidemia, depression, chronic kidney disease)
Past Surgical History: Reports Tonsilectomy and Other (AAA repair)
Social History
Tobacco: Smoker
Alcohol: None
Family History
Family History: Not pertinent
Allergies / Home Medications
Allergies reflects when Allergies were last updated in [facility].
Home Medications with original date entered in [facility]
Allergy/Medication List:
Allergies
Allergy/AdvReac Type Severity Reaction Status Date / Time
No Known Allergies Allergy Verified 01/28/24 10:12
Home Medications
tiotropium bromide 2.5 mcg/actuation mist for inhalation (Spiriva Respimat) 2 puff inhalation R DAILY Lung/breathing issues 07/01/21
sertraline 100 mg tablet 100 mg PO DAILY Mental Health/Anxiety 07/08/21
acetaminophen 500 mg tablet 500 mg PO Q6H PRN mild pain 12/29/22
doxylamine succinate 25 mg tablet (Unisom (doxylamine)) 25 mg PO HSPRN PRN insomnia 12/29/22
mometasone-formoterol HFA 200 mcg-5 mcg/actuation aerosol inhaler (Dulera) 2 inh inhalation R BID Lung/Breathing Issues 08/14/23
losartan 50 mg tablet 50 mg PO DAILY Blood pressure #60 tabs 08/19/23
Lactobac no.2-Bifidobac no.1-S. thermo 112.5 billion cell capsule (Visbiome) 1 cap PO DAILY 01/28/24
aspirin 81 mg tablet,delayed release 81 mg PO DAILY 01/28/24
ferrous sulfate 325 mg (65 mg iron) tablet (Feosol) 325 mg PO DAILY anemia 01/28/24
magnesium oxide 250 mg PO DAILY Electrolyte Repletion 01/28/24
simvastatin 40 mg tablet 40 mg PO QPM High cholesterol 01/28/24
therapeutic multivitamin 1 tab PO DAILY 01/28/24
Review of Systems
-
History Source: Patient
A 12 point ROS was completed and negative except as noted: Yes
Physical Exam
Vital Signs
Vital Signs
Temp Pulse Resp BP Pulse Ox
98.1 F 97 20 133/98 97
01/28/24 10:09 01/28/24 10:09 01/28/24 10:09 01/28/24 10:09 01/28/24 10:09
Physical Exam
General: No Apparent Distress
HEENT: PERRLA
Respiratory: Clear; No Wheezes
Cardiac: S1/S2 and Regular Rhythm
GI: Soft and Non Tender
Musculoskeletal: No Edema
Skin: Warm and Dry; No Rash
Neuro: AO x 3
Psych: Calm
Laboratory Results
-
01/28/24 13:12
01/28/24 13:12
Laboratory Results
Total Bilirubin 0.2 mg/dl (0.2-1.3) 01/28/24 13:12
AST 19 U/L (14-36) 01/28/24 13:12
ALT 15 U/L (0-35) 01/28/24 13:12
Alkaline Phosphatase 93 U/L (38-126) 01/28/24 13:12
Data Reviewed
-
Diagnostic Radiology: Report Reviewed by me
Lab Data: Labs Reviewed by me
Impression/Plan
-
Ms. Roya Jolly is a 73 yo man with hx COPD, HLD, Depression presents with on-going groin pain and hip pain after sustained a fall one week ago.
Triage VS: stable
LABS: WBC 9.2, Hg 11, PLT 274, Na 137, K+ 4.7, CO2 24, BUN 21, Cr 1.0, Glucose 101, liver enzymes WNL
Hip X-Ray:
IMPRESSION:
Fracture of the subcapital left femoral neck.
Pelvis CT:
IMPRESSION: Slightly impacted subcapital fracture of the left proximal femur.
Left Hip Fracture
-case discussed with ortho in the ER and possible OR today
-admit to med/surg
-keep NPO until ortho eval
-pain control: standing Tylenol and IV Dilaudid PRN
-SCD for DVT PPx pre-op
-hold EXTRACTOR PULLER asa 81mg
COPD
-patient denies using home oxygen and is currently breathing comfortably on room air without wheezing on exam
-EXTRACTOR PULLER Dulera
-EXTRACTOR PULLER Spiriva
-Albuterol PRN
Hyperlipidemia
-EXTRACTOR PULLER Statin
Essential Hypertension
-hold EXTRACTOR PULLER Losartan for now - monitor BP closely post-op and resume if elevation
Abdominal Aortic Aneurysm s/p AAA
Anxiety/Depression
-EXTRACTOR PULLER Zoloft
DVT PPx SCD
FULL CODE
--- NOTE | 2024-01-28 16:52 | CON.ORTHO ---
Consultation - Orthopedics
History
HPI: 73-year-old female community ambulator presented to emergency department status post mechanical fall at home last week with persistent left hip pain. She was subsequently diagnosed with a valgus impacted left femoral neck fracture. She has
been to the hospital service and orthopedics is consulted for further evaluation and treatment. This afternoon patient localizes pain to the left groin. Pain is made worse with ambulation and motion left hip. She reports that she lives at home
with her son and [id number]. She does not use cane or walker for ambulatory assistance. She reports that she has had no previous hip or groin pain but after a fall last week it has been fairly constant and progressively worsened with
ambulation.
Allergies / Home Medications
Past medical history: COPD, hypertension, hyperlipidemia, AAA
Past surgical history: AAA repair tonsillectomy
Family history: Not pertinent
Social history: Current smoker half pack a day, lives with family at home
Allergy/AdvReac Type Severity Reaction Status Date / Time
No Known Allergies Allergy Verified 01/28/24 10:12
�Medication �Instructions �Recorded
tiotropium bromide 2.5 2 puff inhalation R DAILY 07/01/21
mcg/actuation mist for inhalation Lung/breathing issues
(Spiriva Respimat)
sertraline 100 mg tablet 100 mg PO DAILY depression/anxiety 07/08/21
acetaminophen 500 mg tablet 500 mg PO Q6H PRN mild pain 12/29/22
doxylamine succinate 25 mg tablet 25 mg PO HSPRN PRN insomnia 12/29/22
(Unisom (doxylamine))
mometasone-formoterol HFA 200 2 inh inhalation R BID 08/14/23
mcg-5 mcg/actuation aerosol Lung/Breathing Issues
inhaler (Dulera)
losartan 50 mg tablet 50 mg PO DAILY Blood pressure #60 08/19/23
tabs
Lactobac no.2-Bifidobac no.1-S. 1 cap PO DAILY probiotic 01/28/24
thermo 112.5 billion cell capsule
(Visbiome)
aspirin 81 mg tablet,delayed 81 mg PO DAILY Blood Clot 01/28/24
release Prevention/Tx
ferrous sulfate 325 mg (65 mg 325 mg PO DAILY anemia 01/28/24
iron) tablet (Feosol)
magnesium oxide 250 mg PO DAILY Electrolyte 01/28/24
Repletion
simvastatin 40 mg tablet 40 mg PO QPM High cholesterol 01/28/24
therapeutic multivitamin 1 tab PO DAILY Supplement 01/28/24
Vital Signs / Lab Results
Temp Pulse Resp BP Pulse Ox
98.3 F 86 18 122/86 100
01/28/24 15:05 01/28/24 15:05 01/28/24 15:05 01/28/24 15:05 01/28/24 15:05
01/28/24 13:12
01/28/24 13:12
10 point review systems reviewed and negative unless otherwise stated
General: Pleasant, no acute distress at rest in bed
Musculoskeletal left lower extremity
Skin intact, no erythema
There is tenderness palpation over the groin
There is some mild to moderate pain with logroll
There is reproducible groin pain with passive flexion of the hip
There is no significant rotational deformity or shortening noted
No ipsilateral palpable knee effusion
Positive EHL, FHL, ankle dorsiflexion, plantarflexion
Brisk cap refill distally
No other areas of bony tenderness palpation crepitation long bones or joints
Diagnostic studies
X-rays left hip and CT scan hip independently viewed by myself. There is evidence of valgus impacted left femoral neck fracture. There is no significant angulation on axial cuts
Assessment / Plan
73-year-old female status post fall with a valgus impacted left femoral neck fracture. I do long detailed discussion with the patient regarding diagnosis and treatment options. We discussed both surgical nonsurgical options. I did explain to the
patient this is a stable fracture pattern and can theoretically be treated without surgery. I explained to her that the concern would be if there is any interval displacement that she would require a much larger surgery. After discussion mutually
elected to proceed with cannulated screw fixation left valgus impacted femoral neck fracture. We discussed risks benefits and alternatives of surgery. We discussed the usual expected perioperative and postoperative course. After discussion
written informed consent was obtained
Nonweightbearing left lower extremity
N.p.o.
Pain control
DVT prophylaxis: Please hold in preparation for the OR
Plan: 2 OR today for close reduction cannulated screw fixation left femoral neck fracture pending OR availability and medical clearance
--- NOTE | 2024-01-28 17:55 | OR.RPT ---
Operative Report
Operative Report
Anesthesia Type:
Spinal
Operative Indications:
Left femoral neck fracture
Operative Findings :
Valgus impacted femoral neck fracture
Complications:
None
Implants:
6.5 mm titanium Karina cannulated screws x 3
Procedure and Technique:
Close reduction cannulated screw fixation left femoral neck fracture
INDICATIONS FOR PROCEDURE:
A 73-year-old community ambulator sustained a fall last week had progressive worsening groin pain was subsequently diagnosed with a valgus impacted left upper neck fracture. I do long discussion the patient regarding conservative and surgical
options. We mutually agreed to proceed with surgical intervention to stabilize the fracture and prevent any further displacement. We discussed risks benefits and alternatives to surgery. We discussed the usual expected perioperative and
postoperative course. After discussion written informed consent was obtained
OPERATIVE PROCEDURE:
Patient was seen identified in the preoperative holding area. Operative extremities marked and questions were addressed. She was taken to the operating room where spinal anesthesia was administered. She was placed in a fracture table. Operative
extremity was prepped and draped in the normal sterile fashion. Timeout was performed identifying the correct operative extremity. Preoperative antibiotics were addressed. Small 5 cm incision was made over the lateral aspect of the hip.
Guidewires were then placed in an inverted triangle position and confirmed to be in appropriate position on fluoroscopy. Appropriately sized 6.5 mm cannulated screws were then placed. Appropriate position was confirmed on fluoroscopy on orthogonal
views. Satisfied with extent surgery wound was yuridia irrigated normal saline solution. Wound was closed with 2-0 Vicryl for subcutaneous layer. Jeniffer were used for skin. Mepilex dressing was placed. Anesthesia was reversed and she was taken
to PACU in stable condition. Postoperative plans include weightbearing to patient's tolerance operative treatment he with a walker to protect her weightbearing. I will recommend Lovenox renally dosed daily x 28 days for DVT prophylaxis.
Disposition:
PACU stable condition
[2024-01-28] MEDS: TYLENOL 1000 MG PO (18:27)
[2024-01-28] MEDS: DEMEROL 12.5 MG IV (18:49)
[2024-01-28] MEDS: SYMBICORT 160/4.5 MCG INHALER INH (20:16)
[2024-01-28] MEDS: COLACE 100 MG PO (21:53)
[2024-01-28] MEDS: MELATONIN 5 MG PO (21:53)
[2024-01-28] MEDS: LIPITOR 20 MG PO (21:53)
[2024-01-28] MEDS: NSS 1000 IV (21:53)
--- NOTE | 2024-01-28 22:23 | TRANSFER ---
1944: Received report from PATENT CLERK Elly - pt brought over in bed s/p left hip cannulated screw - antibacterial adhesive dressing to left hip CDI, +CMS to LLE. Pt drowsy but responded to verbal stimuli. VSS. no c/o pain. Bed in lowest position,
safety maintained.
--- NOTE | 2024-01-28 23:42 | PTCARENOTE ---
Pt ambulated to toilet w standby assist and RW w/o incident, care ongoing.
[2024-01-29] VITALS (8 sets, daily range): BP systolic 104–161; BP diastolic 56–76; PULSE 88–93; O2SAT 94–95
[2024-01-29] MEDS: TYLENOL 1000 MG PO ×4 (00:12→21:27)
[2024-01-29] MEDS: ANCEF 5 IV ×2 (00:12→08:07)
[2024-01-29] MEDS: ROXICODONE 10 MG PO ×4 (04:19→21:27)
[2024-01-29] MEDS: NSS IV (05:11)
[2024-01-29 05:33] LABS: Hematocrit 34.4 % (37.0-47.0); Hemoglobin 11.4 g/dL (12.0-16.0); Mean Corp Hgb Conc. 33.1 g/dL (33.0-37.0); Mean Corpuscular Hgb 32.8 pg (27.0-31.0); Mean Corpuscular Volume 98.9 fL (81.0-99.0); Mean Platelet Volume 10.2 fL (7.4-10.4); Platelet Count 275 10^3/uL (130-400); Red Blood Cell Count 3.48 10^6/uL (4.20-5.40); Red Cell Dist. Width 13.2 % (11.5-14.5); White Blood Cell Count 10.5 10^3/uL (4.8-10.8)
[2024-01-29 05:56] LABS: Blood Urea Nitrogen 22 mg/dl (7-17); Calcium 8.9 mg/dl (8.4-10.2); Carbon Dioxide 21 mmol/L (22-30); Chloride 104 mmol/L (98-107); Estimated Creatinine Clearance 39 ml/min; Glucose 109 mg/dl (70-99); Magnesium 2.2 mg/dl (1.6-2.3); Potassium 4.7 mmol/L (3.5-5.1); Sodium 138 mmol/L (135-145); eGFR 59.12
[2024-01-29] MEDS: SPIRIVA RESPIMAT 2.5 MCG 2 PUFF INH (07:42)
[2024-01-29] MEDS: SYMBICORT 160/4.5 MCG INHALER 2 PUFF INH ×2 (07:42→19:41)
[2024-01-29] MEDS: COLACE 100 MG PO ×2 (08:07→19:24)
[2024-01-29] MEDS: ZOLOFT 100 MG PO (08:07)
[2024-01-29] MEDS: LOVENOX 40 MG SC (08:08)
--- NOTE | 2024-01-29 09:01 | W.PN.HOSP.TC ---
Today's Communication/Plan
-
Continue postop care
Assessment / Plan
Assessment / Plan
Physical exam:
General: Well Developed, Well Nourished and No Apparent Distress
HEENT: Normocephalic, Atraumatic and Moist Mucous Membranes
Respiratory: Clear to Auscultation; Negative Wheezes, Rales or Rhonchi
Cardiac: Regular Rhythm and S1/S2
GI: Soft, Nontender and Nondistended
Musculoskeletal: Left hip postop findings. No Clubbing, No Cyanosis and No Edema
Neuro: Awake, Alert and Oriented
Psych: Calm
A/P:
Left Hip Fracture
-Status post closed reduction cannulated screw fixation left femoral neck fracture on 01/27
-pain control: standing Tylenol and IV Dilaudid prn
-Resume NARCOTICS AGENT asa 81mg
- PT OT eval
COPD
-patient denies using home oxygen and is currently breathing comfortably on room air without wheezing on exam
-Cont Symbicort
-Cont Spiriva
-Cont Albuterol PRN
Hyperlipidemia
-Cont Statin
Essential Hypertension
-Resume NARCOTICS AGENT Losartan - monitor BP closely post-op
Abdominal Aortic Aneurysm s/p AAA
Anxiety/Depression
-NARCOTICS AGENT Zoloft
DVT PPx Lovenox SQ
FULL CODE
Anticipated Discharge: 24 - 48 hours
Subjective/Interval History
-
Date of Service: January 29, 2024
Mild hip discomfort. No chest pain or shortness of breath
Objective Data
-
Labs:
Laboratory Results
01/29/24
04:13
WBC 10.5
Hgb 11.4 L
Hct 34.4 L
Plt Count 275
Sodium 138
Potassium 4.7
Chloride 104
Carbon Dioxide 21 L
BUN 22 H
Creatinine 1.0
Glucose 109 H
Calcium 8.9
Vital Signs:
Vital Signs
Temp Pulse Resp BP Pulse Ox
98.4 F 91 16 124/61 98
01/29/24 08:46 01/29/24 08:46 01/29/24 08:46 01/29/24 08:46 01/29/24 08:46
I&O
01/28/24 01/29/24 01/30/24
06:59 06:59 06:59
Intake Total 1490 / 1490 5
Balance 1490 / 1490
[2024-01-29] MEDS: COZAAR 50 MG PO (09:30)
[2024-01-29] MEDS: ASPIR LOW (ENTERIC COATED) 81 MG PO (09:30)
--- NOTE | 2024-01-29 10:16 | W.PN.ORTHO ---
Today's Communication / Plan
-
73-year-old female postop day 1 status post closed reduction cannulated screw fixation left valgus impacted femoral neck fracture doing well
Weightbearing as tolerated left lower extremity with a walker
PT OT
Pain control
DVT prophylaxis: Recommend Lovenox renally dosed x 28 days
Medical management per primary team
Plan to follow-up outpatient in 2 to 3 weeks for repeat evaluation repeat radiographs and plan removal of travis
Subjective
.
.:
Patient resting comfortably in bed. She reports very minimal pain ambulating today with a walker.
Vital Signs and Labs
.
Vital Signs and Labs:
Lab Results
01/29/24 04:13
01/29/24 04:13
Temp Pulse Resp BP Pulse Ox
98.4 F 87 16 140/74 98
01/29/24 08:46 01/29/24 09:30 01/29/24 08:46 01/29/24 09:30 01/29/24 08:46
Physical Exam
-
Musculoskeletal left lower extremity
Dressing with minimal bloody drainage
Leg lengths equal
Moderate swelling thigh and hip
Positive EHL, FHL, ankle dorsiflexion, plantarflexion
--- NOTE | 2024-01-29 14:22 | CM ---
Met with patient at bedside; Initial assessment completed
Pharmacy verified: [facility] @ [address], [place]
Patient reported she lives in a multilevel home with her son and daughter in law; no steps to enter; 2 steps up to the kitchen; uses a Chair Lift to 2nd floor bedroom and bathroom; bath she is currently using has a Tub w/shower; grab bar and shower
chair
PLOF: reported she is independent with personal care; does her own laundry; ambulated without a device; does not drive; retired
No SNF utilization history
Family will transport home
PT recommends home health; she is agreeable; options identified; preference is [facility]; referral sent to [facility] liaison
Plan: Discharge to home when medically stable with home health services ([facility]/PT)
[2024-01-29] MEDS: NICODERM TRANSDERMAL 14 MG TRANSDERM (14:31)
--- NOTE | 2024-01-29 15:42 | VNURNOTE ---
[facility] liaison attempted to meet patient at bedside. She was sleeping soundly. [facility] brochure left. Referral placed in [facility].
[2024-01-29] MEDS: LIPITOR 20 MG PO (17:08)
[2024-01-29] MEDS: MELATONIN 5 MG PO (21:26)
[2024-01-30] MEDS: ROXICODONE 10 MG PO (05:08)
[2024-01-30 05:43] LABS: Hematocrit 34.8 % (37.0-47.0); Hemoglobin 11.3 g/dL (12.0-16.0); Mean Corp Hgb Conc. 32.5 g/dL (33.0-37.0); Mean Corpuscular Hgb 32.5 pg (27.0-31.0); Mean Platelet Volume 9.5 fL (7.4-10.4); Platelet Count 258 10^3/uL (130-400); Red Blood Cell Count 3.48 10^6/uL (4.20-5.40); Red Cell Dist. Width 13.6 % (11.5-14.5)
[2024-01-30 06:09] LABS: Blood Urea Nitrogen 18 mg/dl (7-17); Calcium 9.7 mg/dl (8.4-10.2); Carbon Dioxide 23 mmol/L (22-30); Chloride 105 mmol/L (98-107); Estimated Creatinine Clearance 35 ml/min; Glucose 104 mg/dl (70-99); Potassium 4.1 mmol/L (3.5-5.1); Sodium 139 mmol/L (135-145); eGFR 52.73
[2024-01-30 07:05] VITALS: BP 144/70
[2024-01-30] MEDS: SPIRIVA RESPIMAT 2.5 MCG 2 PUFF INH (07:40)
[2024-01-30] MEDS: SYMBICORT 160/4.5 MCG INHALER 2 PUFF INH (07:40)
[2024-01-30] MEDS: TYLENOL 1000 MG PO ×2 (08:23→16:00)
[2024-01-30] MEDS: ZOLOFT 100 MG PO (08:23)
[2024-01-30] MEDS: ASPIR LOW (ENTERIC COATED) 81 MG PO (08:23)
[2024-01-30] MEDS: COZAAR 50 MG PO (08:24)
[2024-01-30] MEDS: COLACE 100 MG PO (08:24)
[2024-01-30] MEDS: LOVENOX 40 MG SC (08:24)
[2024-01-30] MEDS: NICODERM TRANSDERMAL 14 MG TRANSDERM (08:25)
--- NOTE | 2024-01-30 09:26 | W.PN.HOSP.TC ---
Today's Communication/Plan
-
IVF. PT OT. Discharge planning
Assessment / Plan
Assessment / Plan
Physical exam:
General: Well Developed, Well Nourished and No Apparent Distress
HEENT: Normocephalic, Atraumatic and Moist Mucous Membranes
Respiratory: Clear to Auscultation; Negative Wheezes, Rales or Rhonchi
Cardiac: Regular Rhythm and S1/S2
GI: Soft, Nontender and Nondistended
Musculoskeletal: Left hip postop findings. No Clubbing, No Cyanosis and No Edema
Neuro: Awake, Alert and Oriented
Psych: Calm
A/P:
Left Hip Fracture
-Status post closed reduction cannulated screw fixation left femoral neck fracture on 01/27
-pain control: standing Tylenol and IV Dilaudid prn
-Resume [employer] asa 81mg
- PT OT eval
-Might be able to go home with home health
-DVT prophylaxis on Lovenox SQ--> discussed with orthopedic and upon discharge we will do aspirin 81 mg twice a day for 30 days and then back to 81 mg daily
-Plan to discharge either later today or tomorrow morning
COPD
-patient denies using home oxygen and is currently breathing comfortably on room air without wheezing on exam
-Cont Symbicort
-Cont Spiriva
-Cont Albuterol PRN
Hyperlipidemia
-Cont Statin
Anemia
Monitor Hb
Today Hb 11.3
Renal insufficiency
Monitor renal function
Cr today 1.1
We will start on IV fluid with gentle hydration
Essential Hypertension
-Resume [employer] Losartan - monitor BP closely post-op
Abdominal Aortic Aneurysm s/p AAA
Anxiety/Depression
-[employer] Zoloft
DVT PPx Lovenox SQ
FULL CODE
Anticipated Discharge: Within 24 hours
Subjective/Interval History
-
Date of Service: January 30, 2024
Patient hip pain tolerable. Has not been eating drinking much. Denies chest pain or shortness of breath
Objective Data
-
Labs:
Laboratory Results
01/30/24
05:25
WBC 9.0
Hgb 11.3 L
Hct 34.8 L
Plt Count 258
Sodium 139
Potassium 4.1
Chloride 105
Carbon Dioxide 23
BUN 18 H
Creatinine 1.1 H
Glucose 104 H
Calcium 9.7
Vital Signs:
Vital Signs
Temp Pulse Resp BP Pulse Ox
98.4 F 100 14 144/70 98
01/30/24 07:05 01/30/24 07:45 01/30/24 07:45 01/30/24 08:24 01/30/24 07:45
I&O
01/29/24 01/30/24 01/31/24
06:59 06:59 06:59
Intake Total 1490 / 1490 1735 / 1735
Balance 1490 / 1490 1735 / 1735
[2024-01-30] MEDS: NSS 1000 IV (10:17)
[2024-01-30 11:02] VITALS: BP 157/87; PULSE 97; O2SAT 95
[2024-01-30 15:15] VITALS: BP 156/89
--- NOTE | 2024-01-30 16:22 | W.DCSUMMARY ---
Discharge Summary
Discharge Data
Date of Admission: 01/28/24
Date of Discharge: 01/30/24
-
Pending Results: No
Hospital Course
Patient is 73 years old female history of hypertension, hyperlipidemia, AAA, COPD, admitted to hospital after mechanical fall and found to have left hip fracture and diagnosed with a valgus impacted left femoral neck fracture. Orthopedic was
consulted. She underwent closed reduction cannulated screw fixation of the left femoral neck fracture by Ortho on 01/27. She did well postoperatively. She participated with PT and OT and they recommended she can be discharged with home health.
Patient feels back to her baseline and she is eager to go home. I discussed with Ortho and they recommend aspirin twice a day for a month for DVT prophylax and then go back to her regular aspirin. She received some IV fluids. She will be
discharged in stable condition today.
Discharge duration: 35 minutes
Discharge Plan
-
Patient Disposition: Home with Home Care
Discharge Diagnosis/Procedures: Left hip fracture status post surgical repair
Diet: Low Cholesterol
Activity: As tolerated
Additional Activity: As instructed by Ortho
Blood Work: Please PCP to order CBC, BMP within 1 week
Referrals:
Lauri Garcia MD [Family Provider] - in less than 1 week
Mauricio George MD [Active] - in one to two weeks
Prescriptions:
New
oxycodone 10 mg Tablet
10 mg PO Q4HPRN PRN (Reason: moderate pain) Qty: 10 0RF
aspirin 81 mg capsule
81 mg PO BID Qty: 60 0RF
polyethylene glycol 3350 [Miralax] 17 gram/dose powder
4 g PO DAILY Qty: 119 0RF
Continued
Spiriva Respimat 1 PUFF mist
2 puff inhalation R DAILY
sertraline 100 MG tablet
100 mg PO DAILY
acetaminophen 500 mg Tablet
500 mg PO Q6H PRN (Reason: mild pain)
Unisom (doxylamine) 25 mg Tablet
25 mg PO HSPRN PRN (Reason: insomnia)
Dulera 200-5 mcg/actuation HFA aerosol inhaler
2 inh INHALATION R BID
losartan 50 mg Tablet
50 mg PO DAILY Qty: 60 0RF
therapeutic multivitamin Tablet
1 tab PO DAILY
Visbiome 112.5 billion cell Capsule
1 cap PO DAILY
simvastatin 40 mg tablet
40 mg PO QPM
ferrous sulfate [Feosol] 325 MG tablet
325 mg PO DAILY
magnesium oxide 250 mg magnesium tablet
250 mg PO DAILY
Held
aspirin 81 mg Tablet,Delayed Release (Dr/Ec)
81 mg PO DAILY
Hold Instructions: Resume on 03/01/24.
Discharge Orders:
Discharge Patient (As Directed); Ordered 01/30/24
Ordered By: Jules Massey
Discharge Date and Time
Discharge Date/Time: 01/30/24 18:08
Print Language: NEPALI
[2024-01-30] MEDS: LIPITOR 20 MG PO (17:42)
[2024-01-30] MEDS: FLUAD (65 yr+) 2024-2025 FORMULA 0.5 ML IM (17:43)
== END 2024-01-30 18:08 | disposition home health service (06) | DRG 482 ==
LOC: 2 SOUTH 15:31
PROVIDERS: Physician Assistant; ADMITTING PHYSICIAN Student in an Organized Health Care Education/Training Program; ATTENDING PHYSICIAN Hospitalist; CONSULT PHYSICIAN Orthopaedic Surgery; EMERGENCY PHYSICIAN Student in an Organized Health Care Education/Training Program; FAMILY PHYSICIAN Internal Medicine
PROC: 0QH704Z Insertion of Internal Fixation Device into Left Upper Femur, Open Approach (ICD-10-PCS; 2024-01-28)
DX: S72.012A Unspecified intracapsular fracture of left femur, initial encounter for closed fracture (principal); F17.210 Nicotine dependence, cigarettes, uncomplicated; J44.9 Chronic obstructive pulmonary disease, unspecified; E78.00 Pure hypercholesterolemia, unspecified; I12.9 Hypertensive chronic kidney disease with stage 1 through stage 4 chronic kidney disease, or unspecified chronic kidney disease; N18.9 Chronic kidney disease, unspecified; I71.40 Abdominal aortic aneurysm, without rupture, unspecified; F41.9 Anxiety disorder, unspecified; F32.A Depression, unspecified; Z79.82 Long term (current) use of aspirin; W01.0XXA Fall on same level from slipping, tripping and stumbling without subsequent striking against object, initial encounter
CPT/HCPCS: 72192; 73502; 76000; 80048; 80053; 83735; 85025; 85027; 90662; 94640; 96374; 97162; 97166; 97530; 99285; C1713; C1769; G0008